=== PATIENT | male | born 1970 | race Caucasian/White ===

== ENCOUNTER 2020-09-10 09:33 | Emergency (ER) | payer MEDICARE, MEDICAID, SELFPAY ==
--- NOTE | 2020-09-10 09:25 | ECG_ITS ---
APPROVED REPORT Exam: Resting ECG HR:79 bpm ECG Measurements Heart Rate 79 AXES AL 130 P 61 QRSd 86 QRS 95 QT 388 T 64 QTc 444 Conclusion Normal sinus rhythm Rightward axis Borderline ECG Electronically signed by : Azeem Hudson, 09/11/2020 07:25:56
[2020-09-10 09:34] VITALS: BP 159/93; PULSE 78; RESP 16; TEMP 36.7; O2SAT 100; BMI 33.0
--- NOTE | 2020-09-10 09:45 | HMH.EDGENADL ---
ED Disposition Clinical Impression: Chest pain Qualifiers: Chest pain type: unspecified Qualified Code(s): R07.9 - Chest pain, unspecified Disposition: Home, Self-Care Condition on Discharge: Good Referrals: Provider,Referral, [Referring] - 3 days Time of Disposition: 11:40 - Critical Care Critical Care Time: No Attestation: On 09/10/20, the high probability of a clinically significant, sudden or life threatening deterioration of the following system(s) required my full and direct attention, intervention and personal management. The time I documented below is in addition to time spent performing reported procedures but includes the following listed in this critical care notation. Medical Decision Making - Medical Records Medical records reviewed: Yes: I reviewed the patient's medical records. - [facility] Inquiry Pt receiving controlled substance: No Vital Signs: 09/10/20 09:34 09/10/20 10:00 09/10/20 10:30 Temperature 98.1 F Temperature Source Oral Pulse Rate 73 74 Pulse Rate [Right Radial] 78 Respiratory Rate 16 18 18 Blood Pressure 151/83 H 165/86 H Blood Pressure [Right Arm] 159/93 H Blood Pressure Mean 105 115 Blood Pressure Mean [Right Arm] 115 02 Sat by Pulse Oximetry 100 09/10/20 11:00 Temperature Temperature Source Pulse Rate 78 Pulse Rate [Right Radial] Respiratory Rate 18 Blood Pressure 167/92 H Blood Pressure [Right Arm] Blood Pressure Mean 119 Blood Pressure Mean [Right Arm] 02 Sat by Pulse Oximetry 100 - Lab Data Lab results reviewed: Yes: I reviewed the patient's lab results. Lab Results 09/10/20 10:40: WBC 9.8, RBC 3.72 L, Hgb 11.9 L, Hct 34.0 L, MCV 91.5, MCH 31.9 H, MCHC 34.9, RDW 13.5, Plt Count 351, MPV 7.2 L, Neut % (Auto) 70.0, Lymph % (Auto) 20.8, Villalba % (Auto) 7.9, Eos % (Auto) 0.5, Baso % (Auto) 0.8, Neut # (Auto) 6.8, Lymph # (Auto) 2.0, Villalba # (Auto) 0.8, Eos # (Auto) 0.1, Baso # (Auto) 0.1 09/10/20 10:40: Troponin I < 0.01 09/10/20 10:40: Sodium 124 L, Potassium 4.5, Chloride 96 L, Carbon Dioxide 25, Anion Gap 7.5, BUN 5 L, Creatinine 1.00, Estimated Creat Clear 132, Estimated GFR 79, Est GFR ( Amer) 96, Glucose 117 H, Calcium 8.7 Result diagrams: 09/10/20 10:40 09/10/20 10:40 Orders (Tests/Meds): ORDERS Category Date Time Status Troponin I Q3H Lab 09/10/20 13:00 Ordered Troponin I Q3H Lab 09/10/20 16:00 Ordered - Radiology Data #1 Image(s): Chest Image Reviewed: Yes I have reviewed radiologist's interpretation Preliminary Findings: Normal/NAD - ECG Data Tracing #1 Normal sinus rhythm, 79 bpm, no ST elevation or depression, normal intervals, no ectopy. ECG initial impression date: 09/10/20 ECG initial impression time: 09:30 Medical Decision Narrative: 49yo M evaluated for chest pain. Patient is in no acute distress on initial evaluation. He is asymptomatic upon arrival. Routine cardiac work-up has been initiated. Patient received aspirin via EMS in route. Laboratory studies are benign. EKG reviewed as above. Patient remains asymptomatic at this time. He is appropriate and stable for discharge home. Encouraged to follow-up with his PCP on Sunday. General Adult HPI - General Stated complaint: chest pain Time Seen by Provider: 09/10/20 09:45 Mode of Arrival: Ambulatory - History of Present Illness HPI narrative: 49yo M with past medical history of psychiatric illness presents the emergency department secondary to chest pain. Patient reports he felt short of breath last night but that quickly resolved. He states he woke up early this morning, as usual, and went outside to smoke. At that time he can only take 2 draws off of his cigarette. He developed left-sided chest pain that did not radiate. He states his symptoms have completely resolved at this time. He denies any shortness of breath. He denies any fever. He denies any recent illness or known sick contact. He denies any cardiac history
--- NOTE | 2020-09-10 09:46 | XR_ITS ---
PROCEDURE: XR CHEST PORTABLE CLINICAL HISTORY: cp COMPARISON: No exams were available for comparison FINDINGS: The cardiomediastinal silhouette and pulmonary vascularity are within normal limits. The lungs are clear without infiltrates, suspicious nodules, or pleural effusions. There monitor lines overlying the chest. No acute bony abnormalities. There is mild degenerate change right shoulder with a somewhat high-riding humeral head. IMPRESSION: No acute findings. Dictated by: Dr. Ajay Montgomery MD 09/10/2020 10:31 Dr. Ajay Montgomery MD in [place] 09/10/2020 10:31
[2020-09-10 10:00] VITALS: BP 151/83; PULSE 73; RESP 18
[2020-09-10 10:30] VITALS: BP 165/86; PULSE 74; RESP 18
[2020-09-10 10:51] LABS: Basophils # 0.1 K/mm3 (0-0.2); Basophils % 0.8 % (0.1-2.0); Eosinophils # 0.1 K/mm3 (0.0-0.4); Eosinophils % 0.5 % (0.1-12.0); Hemoglobin 11.9 g/dL (14.1-18.0); Lymphocytes % 20.8 % (10-50); Mean Corpuscular HGB Conc 34.9 g/dL (31.8-35.4); Mean Corpuscular Hemoglobin 31.9 pg (27.0-31.2); Mean Corpuscular Volume 91.5 fl (80-94); Mean Platelet Volume 7.2 fl (7.4-10.4); Monocytes # 0.8 K/mm3 (0.1-1.0); Monocytes % 7.9 % (1.7-9.3); Neutrophils # 6.8 K/mm3 (1.8-7.8); Platelet Count 351 K/mm3 (142-424); Red Blood Count 3.72 M/mm3 (4.60-6.20); Red Cell Distribution Width 13.5 % (11.5-17.5); White Blood Count 9.8 K/mm3 (4.8-10.8)
[2020-09-10 10:59] LABS: Anion Gap 7.5 mEq/L (5-15); Blood Urea Nitrogen 5 mg/dl (9-20); Calcium 8.7 mg/dl (8.4-10.2); Carbon Dioxide 25 mmol/L (22.0-30.0); Chloride 96 mmol/L (98-107); Creatinine Clearance Estimated 132 mL/min (50-200); Estimated Glomerular Filt Rate 79 ml/min (>60); GFR (African American) 96 ML/MIN (>60); Glucose 117 mg/dl (74-100); Potassium 4.5 mmoL/L (3.5-5.1); Sodium 124 mmol/L (136-145)
[2020-09-10 11:00] VITALS: BP 167/92; PULSE 78; RESP 18; O2SAT 100
[2020-09-10 11:13] LABS: Troponin I < 0.01 ng/ml (0.00-0.034)
--- NOTE | 2020-09-10 11:48 | PC.NURSE ---
[facility] called to let them know patient is ready for pickup.
[2020-09-10 11:53] VITALS: BP 167/92; PULSE 78; RESP 18; TEMP 36.8; O2SAT 100
== END 2020-09-10 12:12 | disposition home or self-care (01) ==
PROVIDERS: Emergency Provider Family Medicine; PCP Emergency Medicine
DX: R07.89 Other chest pain (principal); E11.9 Type 2 diabetes mellitus without complications; E78.5 Hyperlipidemia, unspecified; F17.210 Nicotine dependence, cigarettes, uncomplicated; Z79.899 Other long term (current) drug therapy
CPT/HCPCS: 71045; 80048; 84484; 85025; 93005; 99282

== ENCOUNTER → 2021-08-24 08:31 | Outpatient (CLI) | payer MEDICARE, MEDICAID, SELFPAY ==
--- NOTE | 2021-08-24 08:40 | MR_ITS ---
FINAL REPORT CLINICAL HISTORY: LOW BACK PAIN DOWN RIGHT LEG, NO INJURY FINDINGS: Multiplanar MR imaging of the lumbar spine was performed without contrast. On the sagittal T2-weighted images, disc degeneration is seen at multiple levels. The vertebral alignment is normal. There is no evidence of fracture. No bony mass is identified. The conus has an unremarkable appearance. L1-2: An annular bulge is present. There is no significant canal stenosis or neural foraminal narrowing. L2-3: An annular bulge is present. There is a right posterolateral disc protrusion. There is mild bilateral neural foraminal narrowing. There is mild central canal stenosis with an AP thecal sac diameter of 8 mm. L3-4: An annular bulge is present. There is a small central disc protrusion. There is mild central canal stenosis with an AP thecal sac diameter of 8 mm. L4-5: An annular bulge is present. There is a small left paracentral disc protrusion. There is mild bilateral neural foraminal narrowing. L5-S1: Facet arthropathy is present. There is no significant canal stenosis or neural foraminal narrowing. IMPRESSION: Disc protrusions at L2-L3, L3-L4, and L4-L5 with areas of neural foraminal narrowing and central canal stenosis as described. Reviewed, Interpreted and Dictated by Tenzin Deleon III, MD Transcribed by Deng Cox Authenticated by Tenzin Deleon III, MD on 08/24/2021 10:24:37 AM [facility]
== END ==
PROVIDERS: PCP Emergency Medicine; Visit Provider Emergency Medicine
DX: M54.50 Low back pain, unspecified (principal)
CPT/HCPCS: 72148; 76376

== ENCOUNTER → 2021-09-26 08:42 | Outpatient (POV) | payer MEDICARE, MEDICAID, SELFPAY ==
--- NOTE | 2021-09-26 09:32 | XR_ITS ---
FINAL REPORT CLINICAL HISTORY: TAURUS KNEE PAIN FINDINGS: RIGHT KNEE 4 views were obtained. There is no acute fracture or dislocation. The joint spaces are intact. There is a small joint effusion. IMPRESSION: Small joint effusion with no acute bony abnormality. Reviewed, Interpreted and Dictated by Tenzin Deleon III, MD Transcribed by Sendy Charles Authenticated and [facility]
--- NOTE | 2021-09-26 09:32 | XR_ITS ---
FINAL REPORT CLINICAL HISTORY: TAURUS KNEE PAIN FINDINGS: LEFT KNEE 4 views were obtained. There is no acute fracture or dislocation. The joint spaces are intact. There is no soft tissue abnormality. IMPRESSION: No acute bony abnormality. Reviewed, Interpreted and Dictated by Tenzin Deleon III, MD Transcribed by Sendy Charles Authenticated and [facility]
[2021-09-26 09:46] VITALS: BP 170/88; PULSE 86; RESP 18; TEMP 36.8; O2SAT 98; BMI 34.0
--- NOTE | 2021-09-26 10:20 | HMH.PMCON ---
Assessment and Plan (1) Degenerative disc disease, lumbar Status: Acute Category: Medical Code(s): M51.36 - Other intervertebral disc degeneration, lumbar region (2) Lumbar radiculopathy Status: Acute Category: Medical Code(s): M54.16 - Radiculopathy, lumbar region (3) Sacroiliitis Status: Acute Category: Medical Code(s): M46.1 - Sacroiliitis, not elsewhere classified (4) Greater trochanteric bursitis of right hip Status: Acute Category: Medical Code(s): M70.61 - Trochanteric bursitis, right hip (5) Right knee pain Status: Acute Category: Medical Code(s): M25.561 - Pain in right knee (6) Spinal stenosis, lumbar region with neurogenic claudication Status: Acute Category: Medical Code(s): M48.062 - Spinal stenosis, lumbar region with neurogenic claudication - Assessment and plan all Dx Assessment and Plan for all problems:: Imaging: Ordering Physician: Benny Garrison MD Date of Service: 08/24/21 Procedure(s): MR lumbar spine wo con Accession Number(s): [id number] cc: Benny Garrison MD; Tenzin Deleon MD~ FINAL REPORT CLINICAL HISTORY: LOW BACK PAIN DOWN RIGHT LEG, NO INJURY FINDINGS: Multiplanar MR imaging of the lumbar spine was performed without contrast. On the sagittal T2-weighted images, disc degeneration is seen at multiple levels. The vertebral alignment is normal. There is no evidence of fracture. No bony mass is identified. The conus has an unremarkable appearance. L1-2: An annular bulge is present. There is no significant canal stenosis or neural foraminal narrowing. L2-3: An annular bulge is present. There is a right posterolateral disc protrusion. There is mild bilateral neural foraminal narrowing. There is mild central canal stenosis with an AP thecal sac diameter of 8 mm. L3-4: An annular bulge is present. There is a small central disc protrusion. There is mild central canal stenosis with an AP thecal sac diameter of 8 mm. L4-5: An annular bulge is present. There is a small left paracentral disc protrusion. There is mild bilateral neural foraminal narrowing. L5-S1: Facet arthropathy is present. There is no significant canal stenosis or neural foraminal narrowing. IMPRESSION: Disc protrusions at L2-L3, L3-L4, and L4-L5 with areas of neural foraminal narrowing and central canal stenosis as described. Reviewed, Interpreted and Dictated by Tenzin Deleon III, MD Transcribed by Deng Cox Authenticated by Tenzin Deleon III, MD on 08/24/2021 10:24:37 AM [facility] Plan: Patient presents today with worsening low back pain that radiates to his right lower extremity. He fell about 4 months ago but he did not seek any medical attention. Lumbar MRI is posted above. Upon reviewing the MRI, patient also has some ligamentum flavum hypertrophy in multiple levels. Patient has tried and failed conservative therapies such as oral medication and home exercises for greater than 6 weeks. We will schedule the patient for a lumbar epidural steroid injection at L4-L5. Risks and benefits of the procedure have been explained to the patient. Patient would like to proceed with the procedure. Patient's right knee has also been hurting since his fall about 4 months ago. He states that he has some intermittent swelling on his right knee. We will schedule the patient for a weighted bilateral x-ray of the knees. Follow-up after the injection Patient has been instructed to contact the clinic with any concerns before the next appointment. Dr. Lopez has reviewed this note and agrees with this plan of care. This note was dictated using voice recognition software and make contain errors or omissions. HPI - Data of Consult Patient: new to practice Consult date: 09/26/21 Requesting Physician: NICOLE Vincent - Consult Narrative Reason for consult: LBP History of present illness: Mr. Singh is a 50 year old male who presents today
== END ==
PROVIDERS: Visit Provider Student in an Organized Health Care Education/Training Program
DX: M51.16 Intervertebral disc disorders with radiculopathy, lumbar region (principal); M46.1 Sacroiliitis, not elsewhere classified; M70.61 Trochanteric bursitis, right hip; M48.062 Spinal stenosis, lumbar region with neurogenic claudication; M25.561 Pain in right knee
CPT/HCPCS: 73564; 99202; G0463

== ENCOUNTER → 2021-09-26 09:25 | Outpatient (CLI) | payer MEDICARE, MEDICAID, SELFPAY | PROVIDERS: PCP Emergency Medicine; Visit Provider Student in an Organized Health Care Education/Training Program | DX: M25.562 Pain in left knee (principal); M25.561 Pain in right knee ==

== ENCOUNTER 2021-09-30 08:28 | Day surgery (SDC) | payer MEDICARE, MEDICAID, SELFPAY ==
[2021-09-30 08:34] VITALS: BP 165/94; PULSE 87; RESP 20; TEMP 36.9; O2SAT 96; BMI 34.0
[2021-09-30 08:48] VITALS: BP 185/68; PULSE 86; RESP 20
--- NOTE | 2021-09-30 08:50 | HMH.PMPROC ---
- Procedure Date: 09/30/21 Time: 08:50 Anesthesiologist:: Jacob Proctor CRNA Complications:: None Pre-procedure Diagnosis:: Degenerative disc disease lumbar spine. Lumbar radiculopathy symptoms. Post-procedure Diagnosis:: Same Indications for Procedure:: Very pleasant 50-year-old male who comes our injection clinic today for lumbar epidural steroid injection at the L4-5 level. Patient has low back pain as well as bilateral leg radicular symptoms. He rates his pain 7/10. Patient states lumbar back as well as bilateral leg radicular symptoms increase when walking any distance. Standing for any length of time. Procedure Details:: Procedure: Lumbar epidural steroid injection under fluoroscopy Informed consent was obtained and the risks and benefits of the procedure were explained to the patient. The patient was taken to the procedure room and noninvasive monitors placed, including noninvasive blood pressure cuff and pulse oximeter. The back was viewed using C-arm Fluoroscopy and prepped using Betadine as a cleansing solution and the L4-L5 interspace was palpated. Skin and subcutaneous tissues were anesthetized using lidocaine 1.5% and a 25-gauge needle. After this, an 18-gauge Touhy epidural needle was placed into the L4-L5 interspace and advanced using fluoroscopic guidance and loss of resistance to air until the epidural space was encountered. After confirmation of needle placement in the epidural space, with dye, a solution containing lidocaine 1.5%, 4 mL and Depo-Medrol 80 mg were incrementally injected into the lumbar epidural space. The patient tolerated the procedure well with no complications. The patient was observed in the Pain Clinic and then discharged home neurologically intact. Plan and Disposition:: Patient was discharged without incident.
[2021-09-30 08:57] VITALS: BP 163/98; PULSE 77; RESP 18; O2SAT 97
== END 2021-09-30 08:58 | disposition home or self-care (01) ==
LOC: SC.PAINP 08:29
PROVIDERS: PCP Emergency Medicine; Visit Provider Nurse Anesthetist, Certified Registered
DX: M51.16 Intervertebral disc disorders with radiculopathy, lumbar region (principal); M46.1 Sacroiliitis, not elsewhere classified; M70.61 Trochanteric bursitis, right hip; M48.062 Spinal stenosis, lumbar region with neurogenic claudication; M25.561 Pain in right knee
CPT/HCPCS: 62323; J1040

== ENCOUNTER → 2021-10-13 11:49 | Outpatient (POV) | payer MEDICARE, MEDICAID, SELFPAY ==
--- NOTE | 2021-10-13 13:23 | HMH.PAINSOAP ---
[facility] Pain Management SOAP Note Subjective:: Patient is a pleasant 50-year-old male who presents today for follow-up after a lumbar epidural steroid injection. Patient is currently being treated for degenerative disc disease of lumbar spine with lumbar radiculopathy symptoms, spinal stenosis with neurogenic claudication. After his procedure, patient had significant relief of symptoms of 70 to 80% that lasted for about a week. He was able to increase his activity during that week. Today, patient states that his pain is back to baseline. He has constant low back pain that radiates to bilateral lower extremities, right greater than left. Whenever he walks for longer periods of time, patient does have some right leg heaviness. Rates his pain today as 9 out of 10. For pain, patient is prescribed gabapentin 100 mg twice a day by Dr. Garrison. Patient states that this medication is not helping his pain. [facility] [id number] with an active morphine equivalent of 0. Review of Systems: General: No recent weight changes, no fever, no sleep disturbances Respiratory: No cough, no shortness of air, no recurring pulmonary infections Cardiovascular/peripheral vascular: No chest pain, no palpitations, no edema, no shortness of breath Gastrointestinal: No new onset incontinence, normal bowel movements reported Genitourinary: No new onset incontinence Musculoskeletal: Low back pain Psychiatric: [Normal mood/affect] Neurological: [Denies weakness in extremities], [denies balance issues] Objective:: Physical Exam: General: Alert and oriented x3, no acute distress, pleasant and cooperative Lungs: Respirations even and unlabored, symmetrical chest expansion Eyes: PERRL Musculoskeletal: Flexion and extension of lumbar [spine] somewhat guarded secondary to pain, [antalgic gait noted] Neurological: Speech clear, no gross sensory deficit Assessment:: Degenerative disc disease of lumbar spine with lumbar radiculopathy symptoms, spinal stenosis with neurogenic claudication Plan:: Patient had significant relief of 70 to 80% after a lumbar epidural steroid injection that lasted for about a week. I have discussed with the patient that it would be beneficial to try a repeat lumbar epidural steroid injection. Patient agrees. We will schedule the patient for a lumbar epidural steroid injection at L4-L5 with epidurogram. Risks and benefits of the procedure have been explained to the patient. Patient would like to proceed with the procedure. Patient is not on any blood thinners. Upon reviewing the patient's MRI, patient has some ligamentum flavum hypertrophy and degenerative disc disease on multiple levels. Patient might benefit from a minimally invasive lumbar decompression procedure. I have discussed this procedure in detail with the patient and provided him information in regards to this procedure. We will schedule the patient for lumbar epidural steroid injection with epidurogram to evaluate if the patient is a good candidate for this procedure. Patient has been instructed to contact the clinic with any concerns before the next appointment. Dr. Lopez has reviewed this note and agrees with this plan of care. This note was dictated using voice recognition software and make contain errors or omissions. [facility] History Medical History: Reports:: Cancer, Hyperlipidemia Denies:: Diabetes Mellitus Type 1, Diabetes Mellitus Type 2, MRSA *Have you ever received a pneumonia vaccine?: Yes *Have you received a flu vaccine this season?: Yes Other Medical History: Reports: Arthritis Other Surgeries: Yes: Colonoscopy Amputation: No Fractures: No - *Social History Smoking Status: Current every day smoker Tobacco Type: cigarettes # Packs/Day (cigarettes): 1 Alcohol Intake: never *Occupational Status:: unemployed *Travel in the last 8 weeks: [facility] Family Hx:: No significant family history
[2021-10-13 14:41] VITALS: BP 177/89; PULSE 86; RESP 20; TEMP 36.9; O2SAT 98; BMI 34.0
== END ==
PROVIDERS: Visit Provider Student in an Organized Health Care Education/Training Program
DX: M51.16 Intervertebral disc disorders with radiculopathy, lumbar region (principal); M48.062 Spinal stenosis, lumbar region with neurogenic claudication
CPT/HCPCS: 99212; G0463

== ENCOUNTER 2021-10-25 08:54 | Day surgery (SDC) | payer MEDICARE, MEDICAID, SELFPAY ==
[2021-10-25 09:08] VITALS: BP 157/85; BP 162/89; PULSE 83; PULSE 87; RESP 18; RESP 20; TEMP 37.1; O2SAT 98; O2SAT 99; BMI 32.5
--- NOTE | 2021-10-25 09:25 | HMH.PMPROC ---
- Procedure Date: 10/25/21 Time: 09:26 Anesthesiologist:: Jacob Proctor CRNA Complications:: None Pre-procedure Diagnosis:: Generative disc disease lumbar spine multiple levels. Lumbar radiculopathy. Post-procedure Diagnosis:: Same Indications for Procedure:: This patient is a pleasant 50-year-old who returns our clinic for second lumbar epidural steroid injection at the L4-5 level. Patient had 1 week of significant improvement 70 to 80% in his symptoms after receiving his first injection. However, after that time his symptoms have returned. Procedure Details:: Procedure: Lumbar epidural steroid injection under fluoroscopy Informed consent was obtained and the risks and benefits of the procedure were explained to the patient. The patient was taken to the procedure room and noninvasive monitors placed, including noninvasive blood pressure cuff and pulse oximeter. The back was viewed using C-arm Fluoroscopy and prepped using Betadine as a cleansing solution and the L4-L5 interspace was palpated. Skin and subcutaneous tissues were anesthetized using lidocaine 1.5% and a 25-gauge needle. After this, an 18-gauge Touhy epidural needle was placed into the L4-L5 interspace and advanced using fluoroscopic guidance and loss of resistance to air until the epidural space was encountered. After confirmation of needle placement in the epidural space, with dye, a solution containing lidocaine 1.5%, 4 mL and Depo-Medrol 80 mg were incrementally injected into the lumbar epidural space. The patient tolerated the procedure well with no complications. The patient was observed in the Pain Clinic and then discharged home neurologically intact. Plan and Disposition:: Same
[2021-10-25 09:31] VITALS: BP 160/93; PULSE 76; RESP 18; O2SAT 100
== END 2021-10-25 09:32 | disposition home or self-care (01) ==
LOC: SC.PAINP 08:55
PROVIDERS: PCP Emergency Medicine; Visit Provider Nurse Anesthetist, Certified Registered
DX: M51.16 Intervertebral disc disorders with radiculopathy, lumbar region (principal)
CPT/HCPCS: 62323; J1040; Q9966

== ENCOUNTER → 2021-11-14 09:10 | Outpatient (POV) | payer MEDICARE, MEDICAID, SELFPAY ==
[2021-11-14 09:49] VITALS: BP 155/84; PULSE 82; RESP 20; TEMP 36.4; O2SAT 99; BMI 32.5
--- NOTE | 2021-11-14 10:10 | HMH.PAINSOAP ---
[facility] Pain Management SOAP Note Subjective:: Patient is a 51-year-old male who presents today for follow-up. Patient is current being treated for degenerative disc disease of lumbar spine with lumbar radiculopathy symptoms, spinal stenosis with neurogenic claudication. We have been managing this patient with injective therapy. He has had 2 lumbar epidural steroid injection that provided 70 to 80% of relief that lasted for about 1 to 2 weeks. He describes his pain as originating from the low back and radiating to bilateral lower extremities. He states that he cannot tolerate prolonged activities such as standing and walking. He does have a positive shopping cart syndrome. 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 Rates his pain as 10 out of 10. From his MRI, patient does have ligamentum flavum hypertrophy on multiple levels. I have discussed with him that he could be in candidate for the minimally invasive lumbar decompression procedure. I have explained this procedure with this patient in detail. For pain, he takes gabapentin 100 mg twice a day that is prescribed by Dr. Garrison. This is somewhat helping his pain. [facility] [id number] with an active morphine equivalent of 0. Review of Systems: General: No recent weight changes, no fever, no sleep disturbances Respiratory: No cough, no shortness of air, no recurring pulmonary infections Cardiovascular/peripheral vascular: No chest pain, no palpitations, no edema, no shortness of breath Gastrointestinal: No new onset incontinence, normal bowel movements reported Genitourinary: No new onset incontinence Musculoskeletal: Low back pain Psychiatric: [Normal mood/affect] Neurological: [Denies weakness in extremities], [denies balance issues] Objective:: Physical Exam: General: Alert and oriented x3, no acute distress, pleasant and cooperative Lungs: Respirations even and unlabored, symmetrical chest expansion Eyes: PERRL Musculoskeletal: Flexion and extension of lumbar [spine] somewhat guarded secondary to pain, [antalgic gait noted] Neurological: Speech clear, no gross sensory deficit Assessment:: Degenerative disc disease of the lumbar spine with lumbar radiculopathy symptoms, spinal stenosis with neurogenic claudication Plan:: Patient has had significant relief after lumbar epidural steroid injection of about 70 to 80% that lasted for 1 to 3 weeks. He has tried and failed other conservative therapies such as oral medication, physical therapy, and home exercises for greater than 6 weeks. We will schedule this patient for a lumbar epidural straight injection with epidurogram at L4-L5. Patient is not on any blood thinners. I did discuss with the patient that he can talk to Dr. Garrison to increase his gabapentin. I recommend that he goes up to gabapentin 300 mg twice a day. Patient has been instructed to contact the clinic with any concerns before the next appointment. Dr. Lopez has reviewed this note and agrees with this plan of care. This note was dictated using voice recognition software and make contain errors or omissions. [facility] History Medical History: Reports:: Cancer, Hyperlipidemia Denies:: Diabetes Mellitus Type 1, Diabetes Mellitus Type 2, MRSA *Have you ever received a pneumonia vaccine?: Yes *Have you received a flu vaccine this season?: Yes Other Medical History: Reports: Arthritis Other Surgeries: Yes: Colonoscopy Amputation: No Fractures: No - *Social History Smoking Status: Current every day smoker Tobacco Type: cigarettes # Packs/Day (cigarettes): 1 Alcohol Intake: never *Occupational Status:: other *Travel in the last 8 weeks: None Family Hx:: No significant family history
== END ==
PROVIDERS: PCP Emergency Medicine; Visit Provider Student in an Organized Health Care Education/Training Program
DX: M51.16 Intervertebral disc disorders with radiculopathy, lumbar region (principal); M48.062 Spinal stenosis, lumbar region with neurogenic claudication
CPT/HCPCS: 99212; G0463

== ENCOUNTER 2021-11-18 13:15 | Day surgery (SDC) | payer MEDICARE, MEDICAID, SELFPAY ==
[2021-11-18 13:37] VITALS: BP 168/93; PULSE 79; RESP 18; TEMP 36.4; O2SAT 100; BMI 32.5
[2021-11-18 13:44] VITALS: BP 176/99; PULSE 82; RESP 20
--- NOTE | 2021-11-18 13:59 | P.PCN_ITS ---
- Procedure Date: 11/18/21 Time: 13:59 Anesthesiologist:: Octavio Lopez MD Complications:: None Pre-procedure Diagnosis:: Degenerative disc disease of lumbar spine with lumbar radiculopathy symptoms and lumbar spinal stenosis with neurogenic claudication symptoms Post-procedure Diagnosis:: Same Indications for Procedure:: Patient is a pleasant 51-year-old white male who we have been treating for low back pain with lumbar radiculopathy symptoms. He has increasing pain in his back and legs especially while standing and walking. His legs do feel heavy. On MRI he does have ligamentum flavum hypertrophy. He gets 1 to 2 weeks good relief from the epidural steroid injections. We will do a repeat lumbar epidural steroid injection with epidurogram today to assess levels of stenosis a nd candidacy for minimally invasive lumbar decompression. Procedure Details:: Informed consent was obtained and the risk and benefits of the procedure was explained to the patient. The patient was taken to the procedure room. The patient was placed prone on the procedure table. The patient was prepped and draped in sterile fashion. C-arm fluoroscopy was used to view the lumbar spine. Skin and subcutaneous tissues were anesthetized using lidocaine. I placed an 18-gauge epidural needle and advanced into the L4-L5 interspace using fluoroscopic guidance and [id number] to air. After confirmation of needle placement in the epidural space with dye I injected 2 mL of lidocaine 1.5% with Depo-Medrol 80 mg. Patient tolerated the procedure well with no compl ications. Plan and Disposition:: Based on epidurogram he does have significant stenosis at L3-4 and L4-5. We will seek approval and schedule minimally invasive lumbar decompression bilateral L3-L4 and L4-L5 to decompress his ligamentum flavum to give him relief of his neurogenic claudication symptoms.
[2021-11-18 14:05] VITALS: BP 151/95; PULSE 70; RESP 20; O2SAT 99
== END 2021-11-18 14:05 | disposition home or self-care (01) ==
LOC: SC.PAINP 13:16
PROVIDERS: PCP Emergency Medicine; Visit Provider Anesthesiology
DX: M51.16 Intervertebral disc disorders with radiculopathy, lumbar region (principal); M48.062 Spinal stenosis, lumbar region with neurogenic claudication
CPT/HCPCS: 62323; J1040; Q9966

== ENCOUNTER → 2021-12-01 09:33 | Outpatient (POV) | payer MEDICARE, MEDICAID, SELFPAY ==
[2021-12-01 09:37] VITALS: BP 149/87; PULSE 86; RESP 20; BMI 32.3
--- NOTE | 2021-12-01 09:50 | HMH.PAINSOAP ---
[facility] Pain Management SOAP Note Subjective:: Patient is a pleasant 51 yo male who presents today for follow-up after a lumbar epidural steroid injection with epidurogram on 11/18/2021. Patient is Being treated for degenerative disc disease of the lumbar spine with lumbar radiculopathy symptoms, lumbar spinal stenosis with neurogenic claudication symptoms. After his injection, patient had significant relief of 90%. He has been able to increase his activity since the injections. Patient previously had a LESI that also provided significant relief of about 70-80% but it only lasted for 1-2 weeks. Describes the pain as constant, achy and burning. He has positive shopping cart syndrome. He cannot tolerate any prolonged activity such as standing and walking. 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 MRI shows ligamentum flavum hypertrophy at multiple levels. After his epidurogram, Dr. Lopez recommends the Minimally Invasive Lumbar Decompression (MILD) procedure bilaterally at L3-L4, L4-L5. For his pain, he takes gabapentin 100mg BID that is prescribed by Dr. Garrison. This is helping some of his pain but he would like an increase. [id number], MEQ 0. Review of Systems: General: No recent weight changes, no fever, no sleep disturbances Respiratory: No cough, no shortness of air, no recurring pulmonary infections Cardiovascular/peripheral vascular: No chest pain, no palpitations, no edema, no shortness of breath Gastrointestinal: No new onset incontinence, normal bowel movements reported Genitourinary: No new onset incontinence Musculoskeletal: Low back pain Psychiatric: [Normal mood/affect] Neurological: [Denies weakness in extremities], [denies balance issues] Objective:: Physical Exam: General: Alert and oriented x3, no acute distress, pleasant and cooperative Lungs: Respirations even and unlabored, symmetrical chest expansion Eyes: PERRL Musculoskeletal: Flexion and extension of lumbar [spine] somewhat guarded secondary to pain, [antalgic gait noted]; Neurological: Speech clear, no gross sensory deficit Assessment:: Degenerative disc disease lumbar spine with lumbar radiculopathy symptoms, lumbar spinal stenosis with neurogenic claudication Plan:: Patient continues to have significant relief after his lumbar epidural steroid injection with epidurogram. After his epidurogram, Dr. Lopez is recommending the patient to get a minimally invasive lumbar decompression procedure at bilateral L3-L4 and L4-L5. I have discussed this procedure in detail with the patient. Patient is interested in moving forward with this procedure. We will schedule the patient for a mild procedure at bilateral L3-L4 and L4-L5 to decompress his ligamentum flavum and provide relief of his neurogenic claudication symptoms. Patient has not any blood thinners. I will also adjust the patient's gabapentin. I will increase his gabapentin to gabapentin 300 mg twice a day. Patient has been instructed to contact the clinic with any concerns before the next appointment. Dr. Lopez has reviewed this note and agrees with this plan of care. This note was dictated using voice recognition software and make contain errors or omissions. [facility] History Medical History: Reports:: Cancer, Hyperlipidemia Denies:: Diabetes Mellitus Type 1, Diabetes Mellitus Type 2, MRSA *Have you ever received a pneumonia vaccine?: Yes *Have you received a flu vaccine this season?: Yes Other Medical History: Reports: Arthritis Other Surgeries: Yes: Colonoscopy Amputation: No Fractures: No - *Social History Smoking Status: Current every day smoker Tobacco Type: cigarettes # Packs/Day (cigarettes): 1 Alcohol Intake: never *Occupational Status:: disabled *Travel in the last 8 weeks: None Family Hx:: No significant family history
== END ==
PROVIDERS: PCP Emergency Medicine; Visit Provider Student in an Organized Health Care Education/Training Program
DX: M51.16 Intervertebral disc disorders with radiculopathy, lumbar region (principal); M48.062 Spinal stenosis, lumbar region with neurogenic claudication
CPT/HCPCS: 99212; G0463

== ENCOUNTER 2022-01-21 14:24 | Emergency (ER) | payer MEDICARE, MEDICAID, SELFPAY ==
[2022-01-21 14:23] VITALS: BP 165/96; PULSE 74; RESP 18; TEMP 36.8; O2SAT 99; BMI 34.0
[2022-01-21 15:00] VITALS: BP 175/105; PULSE 68; O2SAT 99
--- NOTE | 2022-01-21 15:53 | PC.NURSE ---
pt in bed sleeping
--- NOTE | 2022-01-21 16:16 | XR_ITS ---
PROCEDURE INFORMATION: Exam: XR Pelvis Exam date and time: 01/21/2022 4:39 PM Age: 51 years old Clinical indication: Pelvic pain; Additional info: Falls, pain TECHNIQUE: Imaging protocol: Radiologic exam of the pelvis. Views: 1 or 2 view. COMPARISON: CT LUMBAR SPINE WO CON 01/21/2022 4:34 PM FINDINGS: Bones/joints: Osteopenia. No fracture. Hip joints are well aligned. Hip joint spaces and articular surfaces are grossly well-maintained. No radiographic evidence to suggest transient osteoporosis or avascular necrosis. No blastic or lytic lesions. The SI joints are unremarkable. The pubic symphysis is unremarkable. Soft tissues: No gross soft tissue abnormalities. Vasculature: Bilateral intrapelvic phleboliths incidentally noted. Other findings: No gross sacrococcygeal abnormalities. IMPRESSION: No acute findings.
--- NOTE | 2022-01-21 16:16 | CT_ITS ---
PROCEDURE INFORMATION: Exam: CT Lumbar Spine Without Contrast Exam date and time: 01/21/2022 4:34 PM Age: 51 years old Clinical indication: Low back pain; Additional info: Falls, back pain TECHNIQUE: Imaging protocol: Computed tomography of the lumbar spine without contrast. Radiation optimization: All CT scans at this facility use at least one of these dose optimization techniques: automated exposure control; mA and/or kV adjustment per patient size (includes targeted exams where dose is matched to clinical indication); or iterative reconstruction. COMPARISON: MR LUMBAR SPINE WO CON 08/24/2021 8:44 AM FINDINGS: Bones/joints: Lumbosacral alignment is normal. No fractures or pars defects. T10-T11 is marginally visualized with chronic Schmorl's node formation but no gross canal or foraminal stenosis. T11-T12: Chronic Schmorl's node formation. Minimal disc bulge. No canal or foraminal stenosis. T12-L1: Slight disc space narrowing. Chronic Schmorl's node formation. Short pedicles. 1 mm disc bulge. Mild canal stenosis. No foraminal stenosis. L1-L2: Mild chronic Schmorl's node formation. Short pedicles. 1.5 mm disc bulge. Moderate canal stenosis. No foraminal stenosis. L2-L3: Mild disc space narrowing. Mild anterior spurring. Mild chronic Schmorl's node formation. Short pedicles. Suspect 2 mm disc bulge. Moderate-severe canal stenosis. Mild-moderate bilateral foraminal stenosis. L3-L4: Mild disc space narrowing. Mild anterior spurring and annular calcification. Chronic Schmorl's node formation. Short pedicles. 2 mm disc bulge. Moderate-severe canal stenosis. Mild-moderate bilateral foraminal stenosis. L4-L5: 2.5 mm disc bulge. Short pedicles. Mild-moderate canal stenosis. Mild bilateral foraminal stenosis. L5-S1: Mild posterior disc space narrowing. 2 mm disc bulge. No canal or foraminal stenosis. Adrenal glands: Right adrenal nodule measures 2 x 1.5 cm and -20 Hounsfield units Hounsfield units average density. Suspected left adrenal nodule measures approximately 17 x 15 mm and approximately 0 Hounsfield units. These are consistent with adrenal adenomas. Kidneys and ureters: Severe left renal cortical scarring and multifocal cortical calcification noted, with compensatory enlargement of the right kidney. Stomach and bowel: The 2 cm aerated posterior fundal gastric diverticulum noted. Vasculature: Moderate calcific atherosclerosis. Soft tissues: Visualized paraspinal soft tissues are normal. IMPRESSION: 1. No evidence of fracture or traumatic subluxation. 2. Osteoarthritic changes is with multilevel mild disc bulging and congenitally short pedicles contributing to multilevel canal stenosis and bilateral foraminal stenoses detailed above. 3. Additional nonemergent findings detailed above.
--- NOTE | 2022-01-21 16:17 | CT_ITS ---
PROCEDURE INFORMATION: Exam: CT Head Without Contrast Exam date and time: 01/21/2022 4:24 PM Age: 51 years old Clinical indication: Pain; Headache; Additional info: Falls TECHNIQUE: Imaging protocol: Computed tomography of the head without contrast. Radiation optimization: All CT scans at this facility use at least one of these dose optimization techniques: automated exposure control; mA and/or kV adjustment per patient size (includes targeted exams where dose is matched to clinical indication); or iterative reconstruction. COMPARISON: No relevant prior studies available. FINDINGS: Brain: No intracranial mass, acute hemorrhage, or acute infarction. Cerebral ventricles: No ventriculomegaly. Paranasal sinuses: Mild ethmoid, left maxillary, and left sphenoid sinus disease. Mastoid air cells: Normal as visualized. Bones/joints: Unremarkable. Soft tissues: Unremarkable. Vasculature: Atherosclerotic vascular disease. IMPRESSION: No acute intracranial abnormality.
--- NOTE | 2022-01-21 16:17 | ECG_ITS ---
APPROVED REPORT Exam: Resting ECG HR:66 bpm ECG Measurements Heart Rate 66 AXES AR 153 P 68 QRSd 97 QRS 98 QT 403 T 71 QTc 417 Conclusion SINUS RHYTHM BORDERLINE RIGHT AXIS DEVIATION [QRS AXIS > 90] BORDERLINE ECG UNCONFIRMED REPORT Electronically signed by : Azeem Hudson MD 01/23/2022 18:02:03
--- NOTE | 2022-01-21 16:17 | CT_ITS ---
PROCEDURE INFORMATION: Exam: CT Cervical Spine Without Contrast Exam date and time: 01/21/2022 4:27 PM Age: 51 years old Clinical indication: Neck pain; Additional info: Falls TECHNIQUE: Imaging protocol: Computed tomography of the cervical spine without contrast. Radiation optimization: All CT scans at this facility use at least one of these dose optimization techniques: automated exposure control; mA and/or kV adjustment per patient size (includes targeted exams where dose is matched to clinical indication); or iterative reconstruction. COMPARISON: CT HEAD/BRAIN WO CON 01/21/2022 4:24 PM FINDINGS: Bones/joints: Degenerative changes of the atlantoaxial articulation. Moderate degenerative disc disease at the C3-C4 through C6-C7 levels, manifest by disc space narrowing, endplate sclerosis, osteophyte formation. Mild multilevel bilateral facet and uncovertebral arthropathy. No acute fracture or malalignment. Paranasal sinuses: Ethmoid, left maxillary, and left sphenoid sinus disease. Lungs: Lung apices are normal. Soft tissues: Normal. IMPRESSION: No acute fracture or malalignment.
--- NOTE | 2022-01-21 16:20 | HMH.EDGENADL ---
Discharge Plan Disposition Patient Disposition: Home, Self-Care Condition: Fair Prescriptions Prescriptions: New amlodipine 5 mg tablet 5 mg PO DAILY Qty: 30 0RF No Action acetaminophen [Tylenol] 325 mg capsule 325 mg PO Q6H PRN (Reason: pain) ibuprofen 600 mg tablet 600 mg PO Q6H loperamide 2 mg capsule 2 mg PO Q3H PRN (Reason: Diarrhea) ondansetron HCl [Zofran] 4 mg tablet 4 mg PO QID PRN (Reason: Nausea) promethazine 25 mg tablet 25 mg PO Q6H PRN (Reason: Nausea) guaifenesin [Robafen] 100 mg/5 mL liquid 200 mg PO Q6H PRN (Reason: Cough) benztropine 2 mg tablet 2 mg PO TID perphenazine 4 mg tablet 4 mg PO TID prazosin 2 mg capsule 4 mg PO QHS quetiapine [Seroquel] 400 mg tablet 400 mg PO BID risperidone 4 mg tablet 4 mg PO BID sertraline 100 mg tablet 200 mg PO DAILY trazodone 150 mg tablet 200 mg PO QHS PRN (Reason: .) gabapentin 300 mg capsule 300 mg PO BID Qty: 60 5RF tamsulosin 0.4 MG capsule 0.4 mg PO DAILY topiramate 25 MG tablet 25 mg PO BID oxcarbazepine 600 MG tablet 600 mg PO TID Rx Instructions: with meals clonazepam 0.5 MG tablet 0.5 mg PO BID gabapentin 100 MG capsule 100 mg PO BID Referrals Follow up/Referrals: Benny Garrison MD [Primary Care Provider] - See instructions Activity Restrictions/Add. Instructions Additional Instructions/Restrictions: Rise slowly when you stand, hold onto blanton or objects to help you walk until walker is obtained. Amlodipine for blood pressure. Follow-up with primary care provider and with Dr. Lopez. Clinical Impressions Clinical Impression: Multiple falls, DDD (degenerative disc disease), lumbar, Spinal stenosis, Chronic lumbar radiculopathy, Hypertension Instructions Patient Instructions: DI for Low Back Pain, DI for High Blood Pressure, How to Prevent Falls, DI for Lumbar Radiculopathy, DI for Spinal Stenosis Discharge ED Provider: Torin Villaseñor Adult HPI General Chief complaint: Back Pain/Injury Stated complaint: Back pain/ Leg weakness Time Seen by Provider: 01/21/22 15:43 Mode of Arrival: EMS Limitations: No Limitations Description of Symptoms (Recalled from ER Triage Doc. by RN): Pt c/o worsening chronic back pain and leg weakness that is causing him to fall. Pt advises that he is seen in pain management for this condition and is scheduled for a procedure within the next month History of Present Illness HPI narrative: Patient is brought in by ambulance from [facility]. He is a very difficult and poor historian. Reportedly personnel at that facility thought that he might be having a stroke. Exact details of why they felt he was having a stroke is unknown, but EMS reports that upon their arrival the patient was complaining of back pain and leg problems and they did not feel any of his symptoms suggestive of stroke. The patient tells me that he has been falling for 3 weeks. Says that he can no longer stand and walk because he will fall. He is not certain why he falls. At different times he endorses dizziness, syncope, bilateral leg weakness, low back pain as causes for his falls. He also tells me that something gets me in his head and neck, he is not sure what it is. He says he was able to get up and walk today, but whenever he did so he would fall. He has a history of lumbar disc disease and spinal stenosis. He has been seeing Dr. Lopez. He has received epidural injections and is scheduled for surgery, minimally invasive lumbar decompression per Dr. Lopez's most recent note. He denies any bowel or bladder dysfunction. Related Data Home Medications Medication Instructions Recorded Confirmed acetaminophen 325 mg capsule 325 mg PO Q6H PRN pain 09/13/18 12/01/21 (Tylenol) benztropine 2 mg tablet 2 mg PO TID . 09/13/18 12/01/21 guaifenesin 100 mg/5 mL oral 200 mg PO Q6H PRN Cough 05
--- NOTE | 2022-01-21 16:26 | PC.NURSE ---
Pt gone to RAD for CT and Xray
[2022-01-21 17:01] VITALS: BP 207/113; PULSE 69; O2SAT 100
[2022-01-21 17:43] LABS: Creatine Kinase 375 U/L (55-170)
[2022-01-21 17:47] LABS: Basophils # 0.1 K/mm3 (0-0.2); Basophils % 0.7 % (0.1-2.0); Eosinophils # 0.3 K/mm3 (0.0-0.4); Eosinophils % 2.7 % (0.1-12.0); Hematocrit 37.5 % (42.0-52.0); Hemoglobin 12.2 g/dL (14.1-18.0); Lymphocytes # 2.5 K/mm3 (0.7-4.5); Lymphocytes % 22.5 % (10-50); Mean Corpuscular HGB Conc 32.5 g/dL (31.8-35.4); Mean Corpuscular Hemoglobin 30.3 pg (27.0-31.2); Mean Corpuscular Volume 93.4 fl (80-94); Mean Platelet Volume 7.3 fl (7.4-10.4); Monocytes # 0.8 K/mm3 (0.1-1.0); Monocytes % 7.5 % (1.7-9.3); Neutrophils # 7.3 K/mm3 (1.8-7.8); Neutrophils % 66.5 % (37.0-80.0); Platelet Count 336 K/mm3 (142-424); Red Blood Count 4.02 M/mm3 (4.60-6.20)
--- NOTE | 2022-01-21 17:51 | PC.NURSE ---
pt in bed sleeping,
[2022-01-21 17:53] LABS: CKMB Relative Index 0.8 U/L (0-4.0); Creatine Kinase MB 3.1 ng/ml (0.0-2.03)
[2022-01-21 17:59] LABS: Troponin I < 0.01 ng/ml (0.00-0.034)
[2022-01-21 18:00] LABS: Chloride 95 mmol/L (98-107)
[2022-01-21 18:01] LABS: Potassium 3.7 mmoL/L (3.5-5.1); Sodium 136 mmol/L (136-145)
[2022-01-21 18:04] LABS: Anion Gap 16.7 mEq/L (5-15); Blood Urea Nitrogen 9 mg/dl (9-20); Calcium 8.8 mg/dl (8.4-10.2); Carbon Dioxide 28 mmol/L (22.0-30.0); Creatinine Clearance Estimated 121 mL/min (50-200); Estimated Glomerular Filt Rate 71 ml/min (>60); GFR (African American) 85 ML/MIN (>60); Glucose 100 mg/dl (74-100)
[2022-01-21 18:29] LABS: Microscopic, Urine URINE MICROSCOPIC (MICROSCOPIC)
--- NOTE | 2022-01-21 18:31 | PC.NURSE ---
Called [facility] and notified them that pt is ready for discharge. They advised they will send someone to pick pulling machine tender pt.
[2022-01-21 18:37] LABS: Appearance,Urine CLEAR (Clear); Bilirubin,Urine Negative (Negative); Blood, Urine Negative (Negative); Color,Urine YELLOW (Yellow); Glucose,Urine (UA) Negative (Negative); Ketones,Urine Negative (Negative); Leukocyte Esterase,Urine Negative (Negative); Nitrate,Urine Negative (Negative); PH,Urine 6.5 (5.0-8.5); Protein,Urine Negative (Negative); Specific Gravity, Urine 1.015 (1.005-1.030); Urobilinogen,Urine 0.2 EU/dl (0.2)
--- NOTE | 2022-01-21 18:46 | PC.NURSE ---
personal snf here to get pt
[2022-01-21 18:55] LABS: Amorphous Sediment,Urine Trace /lpf
[2022-01-21 18:59] VITALS: BP 169/104; PULSE 71; RESP 16; TEMP 36.8; O2SAT 98
== END 2022-01-21 19:00 | disposition home or self-care (01) ==
PROVIDERS: Emergency Provider Emergency Medicine; PCP Emergency Medicine
DX: M51.16 Intervertebral disc disorders with radiculopathy, lumbar region (principal); I10 Essential (primary) hypertension; Z79.899 Other long term (current) drug therapy; Z88.8 Allergy status to other drugs, medicaments and biological substances; Z72.0 Tobacco use; F32.A Depression, unspecified; R29.6 Repeated falls
CPT/HCPCS: 70450; 72125; 72131; 72170; 80048; 81001; 82550; 82553; 84484; 85025; 93005; 99285

== ENCOUNTER 2022-01-22 14:11 | Emergency (ER) | payer MEDICARE, MEDICAID, SELFPAY ==
[2022-01-22 14:11] VITALS: BP 144/89; PULSE 79; RESP 20; TEMP 36.8; O2SAT 100; BMI 29.7
--- NOTE | 2022-01-22 14:12 | PC.NURSE ---
ED MD AT BEDSIDE FOR EVALUATION
[2022-01-22 14:58] LABS: Basophils # 0.1 K/mm3 (0-0.2); Basophils % 0.4 % (0.1-2.0); Eosinophils # 0.1 K/mm3 (0.0-0.4); Eosinophils % 1.2 % (0.1-12.0); Hematocrit 35.6 % (42.0-52.0); Hemoglobin 11.5 g/dL (14.1-18.0); Lymphocytes # 2.7 K/mm3 (0.7-4.5); Lymphocytes % 22.7 % (10-50); Mean Corpuscular HGB Conc 32.2 g/dL (31.8-35.4); Mean Corpuscular Hemoglobin 30.3 pg (27.0-31.2); Mean Corpuscular Volume 94.2 fl (80-94); Mean Platelet Volume 7.6 fl (7.4-10.4); Monocytes % 8.2 % (1.7-9.3); Neutrophils % 67.4 % (37.0-80.0); Platelet Count 376 K/mm3 (142-424); Red Blood Count 3.78 M/mm3 (4.60-6.20); Red Cell Distribution Width 14.2 % (11.5-17.5); White Blood Count 11.8 K/mm3 (4.8-10.8)
[2022-01-22 15:05] LABS: Chloride 100 mmol/L (98-107); Potassium 3.6 mmoL/L (3.5-5.1); Sodium 140 mmol/L (136-145)
--- NOTE | 2022-01-22 15:05 | PC.NURSE ---
PT AMBULATED TO BR WITH STAND BY ASSISTANCE. NO WEAKNESS NOTED
[2022-01-22 15:07] LABS: Alanine Aminotransferase 18 U/L (12-78); Blood Urea Nitrogen 8 mg/dl (9-20); Creatinine Clearance Estimated 106 mL/min (50-200); Estimated Glomerular Filt Rate 71 ml/min (>60); GFR (African American) 85 ML/MIN (>60)
[2022-01-22 15:08] LABS: Albumin Level 4.4 g/dl (3.5-5.0); Albumin/Globulin Ratio 1.6 (1.1-1.8); Alkaline Phosphatase 138 U/L (38-126); Anion Gap 16.6 mEq/L (5-15); Aspartate Amino Transferase 35 U/L (17-59); Carbon Dioxide 27 mmol/L (22.0-30.0); Globulin 2.8 g/dL (1.3-3.2); Glucose 111 mg/dl (74-100); Magnesium 1.9 mg/dl (1.6-2.3); Total Protein,Serum 7.2 g/dl (6.3-8.2)
[2022-01-22 15:18] LABS: Bilirubin,Total 0.1 mg/dl (0.2-1.3)
--- NOTE | 2022-01-22 15:19 | HMH.EDWEAK ---
Discharge Plan Disposition Patient Disposition: Home, Self-Care Condition: Good Prescriptions Prescriptions: No Action acetaminophen [Tylenol] 325 mg capsule 325 mg PO Q6H PRN (Reason: pain) ibuprofen 600 mg tablet 600 mg PO Q6H loperamide 2 mg capsule 2 mg PO Q3H PRN (Reason: Diarrhea) ondansetron HCl [Zofran] 4 mg tablet 4 mg PO QID PRN (Reason: Nausea) promethazine 25 mg tablet 25 mg PO Q6H PRN (Reason: Nausea) guaifenesin [Robafen] 100 mg/5 mL liquid 200 mg PO Q6H PRN (Reason: Cough) benztropine 2 mg tablet 2 mg PO TID perphenazine 4 mg tablet 4 mg PO TID prazosin 2 mg capsule 4 mg PO QHS quetiapine [Seroquel] 400 mg tablet 400 mg PO BID risperidone 4 mg tablet 4 mg PO BID sertraline 100 mg tablet 200 mg PO DAILY trazodone 150 mg tablet 200 mg PO QHS PRN (Reason: .) clonazepam 0.5 mg tablet 0.25 mg PO BID 30 Days Qty: 30 2RF gabapentin 300 mg capsule 300 mg PO BID topiramate 25 MG tablet 25 mg PO BID oxcarbazepine 600 MG tablet 600 mg PO TID Rx Instructions: with meals tamsulosin 0.4 mg Capsule 0.4 mg PO DAILY Multi Vitamin 9 mg iron/15 mL Liquid 1 ml PO DAILY Referrals Follow up/Referrals: Benny Garrison MD [Primary Care Provider] - See instructions Activity Restrictions/Add. Instructions Additional Instructions/Restrictions: Please follow-up with your primary care physician in the next 2 to 3 days for further management. Please also keep your appointment with the pain doctor and spine doctor given your ongoing back pain. Please keep your scheduled appointment. Please continue to take Tylenol and ibuprofen for pain control. Also utilize your pain meds provided to you during your prior visit. Please continue to drink plenty of water and eat 3 balanced meals. Please return to the emergency department for any worsening symptoms. Clinical Impressions Clinical Impression: Chronic lumbar radiculopathy, Bilateral leg weakness Instructions Patient Instructions: DI for Lumbar Radiculopathy Print Language Print Language: Ivorian Discharge ED Provider: Nelda Fried [facility] General Chief complaint: Weakness Stated complaint: weakness Time Seen by Provider: 10/09/22 14:45 Mode of Arrival: EMS Source of Information: Patient Limitations: No Limitations Description of Symptoms (Recalled from ER Triage Doc. by RN): PT SENT FROM [facility]. STATES HE GOT UP TO GET PIZZA AND FELL, MY LEG JUST DOESNT WORK SOMETIMES, THEY MADE ME COME. PT REPORTS CHRONIC LOW BACK PAIN. SEES PAIN MANAGEMENT. History of Present Illness HPI Narrative: Mr. Singh is a 51-year-old male past medical history for degenerative disc disease, lumbar radiculopathy and lower extremity weakness presenting to the emergency department for bilateral lower extremity weakness. Patient reports he got up to get pizza and felt that his legs were weak bilaterally. Patient reports chronic lower back pain and similar symptoms prior. Patient reports lower back pain at this time. Patient describes shooting sensation down both legs. Patient ambulatory prior to arrival. Denies any urinary retention or fecal incontinence. Denies any history of IV drug use. MD Complaint: generalized weakness Related Data Home Medications Medication Instructions Recorded Confirmed acetaminophen 325 mg capsule 325 mg PO Q6H PRN pain 09/13/18 01/27/22 (Tylenol) benztropine 2 mg tablet 2 mg PO TID . 09/13/18 01/27/22 guaifenesin 100 mg/5 mL oral 200 mg PO Q6H PRN Cough 09/13/18 01/27/22 liquid (Robafen) ibuprofen 600 mg tablet 600 mg PO Q6H Pain 09/13/18 01/27/22 loperamide 2 mg capsule 2 mg PO Q3H PRN Diarrhea 09/13/18 01/27/22 ondansetron HCl 4 mg tablet 4 mg PO QID PRN Nausea 09/13/18 01/27/22 (Zofran) perphenazine 4 mg tablet 4 mg PO TID . 09/13/18 01/27/22 prazosin 2 mg capsule 4 mg PO QHS . 09/13/18 01/27/22 pro
--- NOTE | 2022-01-22 15:44 | PC.NURSE ---
PT AMBULATING INDEPENDENTLY IN ROOM AND TO NURSES STATION WITHOUT DIFFICULTY
[2022-01-22 16:00] VITALS: BP 138/76; PULSE 75; RESP 18; TEMP 36.8; O2SAT 97
== END 2022-01-22 16:00 | disposition home or self-care (01) ==
PROVIDERS: Emergency Provider Student in an Organized Health Care Education/Training Program; PCP Emergency Medicine
DX: R53.1 Weakness (principal); M54.16 Radiculopathy, lumbar region; Z79.899 Other long term (current) drug therapy; Z88.8 Allergy status to other drugs, medicaments and biological substances
CPT/HCPCS: 80053; 83735; 85025; 99282

== ENCOUNTER 2022-01-23 21:53 | Emergency (ER) | payer MEDICARE, MEDICAID, SELFPAY ==
[2022-01-23 21:54] VITALS: BP 147/83; PULSE 87; RESP 20; TEMP 36.6; O2SAT 98; BMI 30.1
[2022-01-23 22:00] VITALS: BP 130/76; PULSE 74; TEMP 36.6; O2SAT 99
--- NOTE | 2022-01-23 22:08 | XR_ITS ---
PROCEDURE INFORMATION: Exam: XR Chest Exam date and time: 01/23/2022 10:32 PM Age: 51 years old Clinical indication: Sternal or substernal pain; Additional info: Chest pain TECHNIQUE: Imaging protocol: Radiologic exam of the chest. Views: 2 views. COMPARISON: CR XR CHEST PORTABLE 09/10/2020 10:20 AM FINDINGS: Lungs: No consolidation. Pleural spaces: No pneumothorax. Heart/Mediastinum: No cardiomegaly. Bones/joints: No acute fracture. IMPRESSION: No acute findings.
[2022-01-23 22:13] LABS: Coronavirus 19, PCR Not Detected (NotDetected); Influenza A, PCR Not Detected (NotDetected); Influenza B, PCR Not Detected (NotDetected)
--- NOTE | 2022-01-23 22:15 | ECG_ITS ---
APPROVED REPORT Exam: Resting ECG HR:70 bpm ECG Measurements Heart Rate 70 AXES HI 134 P 62 QRSd 94 QRS 110 QT 314 T 50 QTc 335 Conclusion SINUS RHYTHM POSSIBLE RIGHT VENTRICULAR HYPERTROPHY [SOME/ALL OF: PROMINENT R IN V1, LATE TRANSITION, RAD, SEDRICK, SSS] NONSPECIFIC T-WAVE ABNORMALITY ABNORMAL ECG UNCONFIRMED REPORT Electronically signed by : Azeem Hudson MD 01/24/2022 20:12:58
--- NOTE | 2022-01-23 22:19 | PC.NURSE ---
PT AWARE OF NEED FOR URINE SAMPLE. PT STATES HE IS UNABLE TO GIVE URINE SAMPLE AT THIS TIME.
--- NOTE | 2022-01-23 22:20 | PC.NURSE ---
Patient with radiology at this time, to CT
--- NOTE | 2022-01-23 22:26 | PC.NURSE ---
Patient returns from CT scan at this time.
[2022-01-23 22:28] LABS: Chloride 102 mmol/L (98-107); Sodium 139 mmol/L (136-145)
[2022-01-23 22:29] LABS: Basophils # 0.1 K/mm3 (0-0.2); Basophils % 0.8 % (0.1-2.0); Eosinophils # 0.3 K/mm3 (0.0-0.4); Hematocrit 36.3 % (42.0-52.0); Lymphocytes # 3.1 K/mm3 (0.7-4.5); Mean Corpuscular HGB Conc 32.9 g/dL (31.8-35.4); Mean Corpuscular Hemoglobin 31.1 pg (27.0-31.2); Mean Corpuscular Volume 94.4 fl (80-94); Mean Platelet Volume 7.5 fl (7.4-10.4); Monocytes # 0.8 K/mm3 (0.1-1.0); Monocytes % 7.3 % (1.7-9.3); Neutrophils # 6.4 K/mm3 (1.8-7.8); Neutrophils % 59.9 % (37.0-80.0); Platelet Count 369 K/mm3 (142-424); Potassium 3.5 mmoL/L (3.5-5.1); Red Blood Count 3.85 M/mm3 (4.60-6.20); Red Cell Distribution Width 14.3 % (11.5-17.5); White Blood Count 10.6 K/mm3 (4.8-10.8)
[2022-01-23 22:31] LABS: Alanine Aminotransferase 16 U/L (12-78); Albumin Level 4.2 g/dl (3.5-5.0); Albumin/Globulin Ratio 1.4 (1.1-1.8); Alkaline Phosphatase 138 U/L (38-126); Anion Gap 14.5 mEq/L (5-15); Aspartate Amino Transferase 40 U/L (17-59); Bilirubin,Total 0.2 mg/dl (0.2-1.3); Blood Urea Nitrogen 10 mg/dl (9-20); Calcium 8.9 mg/dl (8.4-10.2); Carbon Dioxide 26 mmol/L (22.0-30.0); Creatinine Clearance Estimated 98 mL/min (50-200); Estimated Glomerular Filt Rate 64 ml/min (>60); GFR (African American) 77 ML/MIN (>60); Globulin 2.9 g/dL (1.3-3.2); Glucose 109 mg/dl (74-100); Total Protein,Serum 7.1 g/dl (6.3-8.2)
[2022-01-23 22:32] LABS: NT Pro Brain Natriuretic Pep. 72.6 pg/mL (0-125)
--- NOTE | 2022-01-23 22:33 | PC.NURSE ---
PT GIVEN URINAL AND STATES HE IS ATTEMPTING TO URINATE.
[2022-01-23 22:39] LABS: T4 (Thyroxine) 3.4 ug/dl (5.53-11.0)
[2022-01-23 22:40] LABS: Troponin I < 0.01 ng/ml (0.00-0.034)
[2022-01-23 22:42] VITALS: BP 128/70; PULSE 81; RESP 17; O2SAT 99
--- NOTE | 2022-01-23 22:43 | PC.NURSE ---
URINE COLLECTED AND SENT TO LAB.
[2022-01-23 22:47] LABS: Microscopic, Urine URINE MICROSCOPIC (MICROSCOPIC)
[2022-01-23 22:48] LABS: Appearance,Urine CLEAR (Clear); Bilirubin,Urine Negative (Negative); Blood, Urine Negative (Negative); Color,Urine YELLOW (Yellow); Glucose,Urine (UA) Negative (Negative); Ketones,Urine Negative (Negative); Leukocyte Esterase,Urine Negative (Negative); Nitrate,Urine Negative (Negative); Protein,Urine Negative (Negative); Urobilinogen,Urine 0.2 EU/dl (0.2)
[2022-01-23 22:53] LABS: Thyroid Stimulating Hormone 1.84 uIU/mL (0.465-4.68)
[2022-01-23 22:55] LABS: Bacteria,Urine Trace /lpf
[2022-01-23 23:00] VITALS: BP 137/88; PULSE 72; RESP 16; O2SAT 98
--- NOTE | 2022-01-23 23:14 | HMH.EDURI ---
Discharge Plan Disposition Patient Disposition: Home, Self-Care Chief Complaint: Upper Respiratory Infection Prescriptions Prescriptions: No Action acetaminophen [Tylenol] 325 mg capsule 325 mg PO Q6H PRN (Reason: pain) ibuprofen 600 mg tablet 600 mg PO Q6H loperamide 2 mg capsule 2 mg PO Q3H PRN (Reason: Diarrhea) ondansetron HCl [Zofran] 4 mg tablet 4 mg PO QID PRN (Reason: Nausea) promethazine 25 mg tablet 25 mg PO Q6H PRN (Reason: Nausea) guaifenesin [Robafen] 100 mg/5 mL liquid 200 mg PO Q6H PRN (Reason: Cough) benztropine 2 mg tablet 2 mg PO TID perphenazine 4 mg tablet 4 mg PO TID prazosin 2 mg capsule 4 mg PO QHS quetiapine [Seroquel] 400 mg tablet 400 mg PO BID risperidone 4 mg tablet 4 mg PO BID sertraline 100 mg tablet 200 mg PO DAILY trazodone 150 mg tablet 200 mg PO QHS PRN (Reason: .) amlodipine 5 mg tablet 5 mg PO DAILY gabapentin 300 mg capsule 300 mg PO BID tamsulosin 0.4 MG capsule 0.4 mg PO DAILY topiramate 25 MG tablet 25 mg PO BID oxcarbazepine 600 MG tablet 600 mg PO TID Rx Instructions: with meals clonazepam 0.5 MG tablet 0.5 mg PO BID gabapentin 100 MG capsule 100 mg PO BID Referrals Follow up/Referrals: Benny Garrison MD [Primary Care Provider] - See instructions Clinical Impressions Clinical Impression: Chronic lumbar radiculopathy, Medication adverse effect Instructions Patient Instructions: DI for Low Back Pain Discharge ED Provider: Benny Garrison URI/Sore Throat HPI General Chief Complaint: Upper Respiratory Infection Stated Complaint: Cough, Congestion Time Seen by Provider: 01/23/22 23:14 Mode of Arrival: EMS Source of Information: Patient, EMS and Medical Record Limitations: DEPRESSIVE DISORDER/SCHIZO AFFECTIVE DISORDER Description of Symptoms (Recalled from ER Triage Doc. by RN): PER [facility] REPORT; PT WAS SENT TO ER FOR SLURRED SPEECH, LOWER EXTREMITIY SWELLING AND ALTERED MENTAL STATUS. WHEN [facility] ARRIVED. PT ALERT AND REPORTS THAT HE WAS JUST WOKE UP AND HE IS FINE. SPEECH WNL. GCS 15. PT REPORTS THAT HE HAS BEEN TO THE ER SEVERAL TIMES LATELY AND HE FEELS MORE TIRED THAN NORMAL AND HAS A COUGH. DUONEB GIVEN PER EMS PRIOR TO ARRIVAL. History of Present Illness HPI Narrative: pt with dec walking and has dec ambulation - has seen pain center MD Complaint: cough Onset (ago): hour(s) Severity: moderate Related Data Home Medications Medication Instructions Recorded Confirmed acetaminophen 325 mg capsule 325 mg PO Q6H PRN pain 09/13/18 01/23/22 (Tylenol) benztropine 2 mg tablet 2 mg PO TID . 09/13/18 01/23/22 guaifenesin 100 mg/5 mL oral 200 mg PO Q6H PRN Cough 09/13/18 01/23/22 liquid (Robafen) ibuprofen 600 mg tablet 600 mg PO Q6H Pain 09/13/18 01/23/22 loperamide 2 mg capsule 2 mg PO Q3H PRN Diarrhea 09/13/18 01/23/22 ondansetron HCl 4 mg tablet 4 mg PO QID PRN Nausea 09/13/18 01/23/22 (Zofran) perphenazine 4 mg tablet 4 mg PO TID . 09/13/18 01/23/22 prazosin 2 mg capsule 4 mg PO QHS . 09/13/18 01/23/22 promethazine 25 mg tablet 25 mg PO Q6H PRN Nausea 09/13/18 01/23/22 quetiapine 400 mg tablet (Seroquel) 400 mg PO BID . 09/13/18 01/23/22 risperidone 4 mg tablet 4 mg PO BID . 09/13/18 01/23/22 sertraline 100 mg tablet 200 mg PO DAILY Depression 09/13/18 01/23/22 trazodone 150 mg tablet 200 mg PO QHS PRN . 09/13/18 01/23/22 clonazepam 0.5 mg tablet 0.5 mg PO BID . 09/26/21 01/23/22 gabapentin 100 mg capsule 100 mg PO BID . 09/26/21 01/23/22 oxcarbazepine 600 mg tablet 600 mg PO TID . 09/26/21 01/23/22 tamsulosin 0.4 mg capsule 0.4 mg PO DAILY . 09/26/21 01/23/22 topiramate 25 mg tablet 25 mg PO BID . 09/26/21 01/23/22 amlodipine 5 mg tablet 5 mg PO DAILY BLOOD PRESSURE 01/23/22 01/23/22 gabapentin 300 mg capsule 300 mg PO BID NEUROPATHY 01/23/22 01/23/22 Allergies Allergy/AdvReac Type Severity
--- NOTE | 2022-01-23 23:16 | CT_ITS ---
PROCEDURE INFORMATION: Exam: CT Head Without Contrast Exam date and time: 01/23/2022 11:24 PM Age: 51 years old Clinical indication: Injury or trauma; Fall; Additional info: Generalized weakness; Fall at alf. TECHNIQUE: Imaging protocol: Computed tomography of the head without contrast. Radiation optimization: All CT scans at this facility use at least one of these dose optimization techniques: automated exposure control; mA and/or kV adjustment per patient size (includes targeted exams where dose is matched to clinical indication); or iterative reconstruction. COMPARISON: CT HEAD/BRAIN WO CON 01/21/2022 4:24 PM FINDINGS: Brain: Normal. No hemorrhage. Unremarkable white matter. No mass effect. Cerebral ventricles: No ventriculomegaly. Paranasal sinuses: Visualized sinuses are unremarkable. No fluid levels. Mastoid air cells: Visualized mastoid air cells are well aerated. Bones/joints: Unremarkable. No acute fracture. Soft tissues: Unremarkable. IMPRESSION: No evidence of acute intracranial hemorrhage, mass effect, or edema.
[2022-01-24] VITALS: BP 146/100; PULSE 71; RESP 18; O2SAT 97
--- NOTE | 2022-01-24 00:24 | PC.NURSE ---
WAI AT [facility] UPDATED. PT UPDATED. PT AWARE OF WAITING ON RESULTS OF HEAD CT.
--- NOTE | 2022-01-24 00:50 | PC.NURSE ---
REPORT TO KATIE AT [facility]. KATIE STATES HE WILL BE HERE TO GET HIM SHORTLY.
--- NOTE | 2022-01-24 00:56 | PC.NURSE ---
REPORT TO NELSY RN- PT AWARE OF PLAN TO DISCHARGE.
[2022-01-24 00:58] VITALS: BP 131/79; PULSE 68; RESP 18; O2SAT 96
[2022-01-24 01:06] VITALS: BP 136/82; PULSE 70; RESP 18; TEMP 36.6; O2SAT 96
[2022-01-24 01:38] VITALS: BP 123/74; PULSE 82; RESP 19; TEMP 36.8; O2SAT 97
== END 2022-01-24 01:55 | disposition home or self-care (01) ==
PROVIDERS: Emergency Provider Emergency Medicine; PCP Emergency Medicine
DX: J06.9 Acute upper respiratory infection, unspecified (principal); R41.82 Altered mental status, unspecified; R55 Syncope and collapse; R47.81 Slurred speech; M54.16 Radiculopathy, lumbar region; R11.0 Nausea; Z20.822 Contact with and (suspected) exposure to COVID-19; R05.9 Cough, unspecified; M79.89 Other specified soft tissue disorders; Z79.1 Long term (current) use of non-steroidal anti-inflammatories (NSAID); Z79.899 Other long term (current) drug therapy; Z87.891 Personal history of nicotine dependence
CPT/HCPCS: 70450; 71046; 80053; 81001; 83880; 84436; 84443; 84484; 85025; 93005; 99285; C9803; U0003; U0005

== ENCOUNTER 2022-01-27 07:21 | Day surgery (SDC) | payer MEDICARE, MEDICAID, SELFPAY ==
[2022-01-27 08:14] VITALS: BP 156/88; PULSE 84; RESP 18; TEMP 36.6; O2SAT 96; BMI 34.0
--- NOTE | 2022-01-27 08:37 | P.PN_ITS ---
PFSH PFS Medical History (Updated 01/27/22 @ 07:49 by Ramona Montoya RN) History of back pain History of syncope Surgical History (Updated 01/27/22 @ 08:01 by Ramona Montoya RN) History of throat surgery Family History (Updated 01/27/22 @ 08:02 by Ramona Montoya RN) Other FHx: mental illness Family history of cancer Family history of hyperlipidemia Family history of hypertension Family history of myocardial infarction Social History (Updated 01/27/22 @ 08:14 by Ramona Montoya RN) Smoking Status: Current every day smoker tobacco type: cigarettes packs per day: 1 pack-years: 20 alcohol intake: former substance use type: former substance user and marijuana current occupational status: disabled Travel in the last 8 weeks: None household members: other housing: assisted living facility marital status: single service: No senior care: No special guerda needs: No agree to transfusion: No do you feel safe at home: Yes victim of physical abuse: No victim of emotional abuse: No victim of sexual abuse: No would you like helpful sources: No [facility] Anesthesia Checklist Patient Identification Patient Identification: Arm Band Structural Data Admitted From: Long-term Nursing Facility Planned Operative Procedure/s: MILD Procedure at L3/4, L4/5 Bilaterally Consent for Planned Operative Procedure(s) Verified: Yes Verified Documents: Surgical Consent and History and Physical NPO Status Verified Time NPO: 00:00 Additional verifications Anesthesia Reactions: No Hx Blood Transfusions: No Blood Transfusion Reaction: No Airway Assessment C-Spine Mobility Assessed: Yes TMJ Mobility Assessed: Yes Dentition: Poor Dentition Neurological Assessment Level of Consciousness: Awake and Alert Anesthesia Plan Anesthesia Risk discussed: Yes Anesthesia Plan: Verified ASA Class: II Anesthesia Type: MAC
--- NOTE | 2022-01-27 09:37 | SUR.OPER ---
0930 80mg depomedrol used for lumbar decompression by Dr. Lopez
[2022-01-27 09:59] VITALS: BP 155/99; PULSE 99; RESP 18; TEMP 36.3; O2SAT 99
[2022-01-27 10:14] VITALS: BP 155/94; PULSE 94; RESP 16; O2SAT 100
--- NOTE | 2022-01-27 10:19 | P.OP_ITS ---
Date of procedure: 01/27/22 Pre-op Diagnosis:: Degenerative disc disease of lumbar spine with lumbar radiculopathy symptoms and lumbar spinal stenosis with neurogenic claudication symptoms Post-op Diagnosis:: Same Procedure performed:: Minimally invasive lumbar decompression bilateral L3-L4 and L4-L5 Surgeon:: Octavio Lopez MD DIE DESIGNER APPRENTICE:: Other Anesthesia: MAC Estimated blood loss (mL): 5 Clinical Note:: This patient is a pleasant 51-year-old white male who we are treating for low back pain with lumbar radiculopathy symptoms and lumbar spinal stenosis with neurogenic claudication symptoms. He has increasing back pain and leg pain especially while standing and walking. MRI and epidurogram did show significant stenosis at L3-L4 and L4-L5. There is significant ligamentum flavum hypertrophy at both levels bilaterally. He presents for minimally invasive lumbar decomp ression bilateral L3-4 and L4-5 today. Operative findings:: None Operative note:: Informed consent was obtained and the risk and benefits of the procedure was explained to the patient. The patient was taken to the operating room and placed prone on the procedure table. The patient was prepped and draped in sterile fashion. C-arm fluoroscopy was used to view the lumbar spine. The skin and subcutaneous tissues were anesthetized using lidocaine. A epidural needle was inserted and advanced into the L3-L4 interspace. After confirmation of needle placement in the epidural space, dye was injected in a contralateral oblique view. There was an epidurogram seen at L3-L4 and L4-L5. Significant stenosis was seen at L3-L4 and L4-L5. The skin and subcutaneous tissues again were anesthetized using lidocaine. An incision was made and a access trocar was inserted and advanced to contact at the superior aspect of the L4 lamina on the left side. And a contralateral oblique view the side was viewed. Using a bone rongeur and tissue sculptor we debulked bone from the L3-L4 and L4-L5 interspace on the left side. We then used the tissue sculptor to debulk ligament at the L3-L4 and L4-L5 interspace on the left side. We then moved over to the right side and debulked bone and ligament from L3-L4 and L4-L5 on the right side. There is opening of the stenosis at L3-L4 and L4-L5 bilaterally. The access trocar was removed. A total of 3 mL's of dye was used. There is good spread of dye above and below this level as well. We injected 80 mg Depo-Medrol through the epidural needle. The epidural needle was removed and dressings were placed. This encounter for exam is for normal comparison and control in a clinical research program Patient was taken to recovery in stable condition. Patient was discharged home neurologically intact and with good relief of pain symptoms. Plan and disposition: We will follow-up with this patient in 2 weeks. Will reevaluate symptoms at that time. Condition: stable Disposition: PACU Complications:: None
[2022-01-27 10:29] VITALS: BP 152/79; PULSE 82; RESP 18; O2SAT 97
[2022-01-27 10:59] VITALS: BP 152/79; PULSE 86; RESP 16; O2SAT 99
[2022-01-27 11:30] VITALS: BP 152/78; PULSE 84; RESP 16; O2SAT 99
[2022-01-27 11:47] LABS: POC Glucose,Bedside 134 (70-110)
== END 2022-01-27 11:30 | disposition home or self-care (01) ==
PROVIDERS: PCP Emergency Medicine; Visit Provider Anesthesiology
DX: M51.16 Intervertebral disc disorders with radiculopathy, lumbar region (principal); M48.062 Spinal stenosis, lumbar region with neurogenic claudication; Z72.0 Tobacco use; Z79.899 Other long term (current) drug therapy; Z00.6 Encounter for examination for normal comparison and control in clinical research program
CPT/HCPCS: 0275T; 82962; 96374; C1889; J1040; J2405

== ENCOUNTER → 2022-02-09 10:27 | Outpatient (POV) | payer MEDICARE, MEDICAID, SELFPAY ==
--- NOTE | 2022-02-09 10:53 | EXP.PAIN.SOA ---
[facility] Pain Management SOAP Note Subjective:: Patient is a pleasant 51-year-old who presents today for follow-up of GA LD at L3-L4 and L4-5 on 01/27/2022. We are currently treating the patient for degenerative disc disease of lumbar spine with lumbar radiculopathy symptoms, lumbar spinal stenosis with neurogenic claudication symptoms. Today he rates his pain a 2 out of 10. Patient states he has had significant improvement following this procedure. He states he has had at least 70 to 80% relief of his symptoms. He states he has been able to increase his activity including range of motion exercises with minimal pain. Patient does work as a cook at [employer]. Patient is currently prescribed gabapentin 300 mg twice a day and clonazepam 0.5 mg twice a day by Dr. Garrison's office. Patient states he did previously have some falls and thinks it may be related to his medications. He states he has decreased these and has been doing much better and not had any falls. Patient states these medications do help. His Otis is [id number]. Its been reviewed and appropriate. Review of Systems: General: No recent weight changes, no fever, no sleep disturbances Respiratory: No cough, no shortness of air, no recurring pulmonary infections Cardiovascular/peripheral vascular: No chest pain, no palpitations, no edema, no shortness of breath Gastrointestinal: No new onset incontinence, normal bowel movements reported Genitourinary: No new onset incontinence Musculoskeletal: Low back pain Psychiatric: [Normal mood/affect] Neurological: [Denies weakness in extremities], [denies balance issues] Objective:: Physical Exam: General: Alert and oriented x3, no acute distress, pleasant and cooperative Lungs: Respirations even and unlabored, symmetrical chest expansion Eyes: PERRL Musculoskeletal: Flexion and extension of lumbar [spine] somewhat guarded secondary to pain, [antalgic gait noted] Neurological: Speech clear, no gross sensory deficit Assessment:: Degenerative disc disease of lumbar spine with lumbar radiculopathy symptoms, lumbar spinal stenosis with neurogenic claudication symptoms Plan:: Patient has had significant improvement of his low back pain following his lumbar decompression. At this time the patient is doing well. We will follow-up with the patient in 1 month. Patient will return to clinic in 1 month for reevaluation of symptoms and follow-up. Patient has been instructed to contact the clinic with any concerns before the next appointment. Dr. Lopez has reviewed this note and agrees with this plan of care. This note was dictated using voice recognition software and make contain errors or omissions. PFSH PFSH Medical History History of back pain History of syncope Surgical History History of throat surgery Family History Other FHx: mental illness Family history of cancer Family history of hyperlipidemia Family history of hypertension Family history of myocardial infarction Social History Smoking Status: Current every day smoker tobacco type: cigarettes packs per day: 1 pack-years: 20 alcohol intake: former substance use type: former substance user and marijuana current occupational status: disabled Travel in the last 8 weeks: None household members: other housing: assisted living facility marital status: single service: No halfway: No special guerda needs: No agree to transfusion: No do you feel safe at home: Yes victim of physical abuse: No victim of emotional abuse: No victim of sexual abuse: No would you like helpful sources: No
[2022-02-09 11:53] VITALS: BP 140/86; PULSE 105; RESP 18; TEMP 37.1; O2SAT 97; BMI 33.0
== END ==
PROVIDERS: PCP Emergency Medicine; Visit Provider Nurse Practitioner Family
DX: M51.16 Intervertebral disc disorders with radiculopathy, lumbar region (principal); M48.062 Spinal stenosis, lumbar region with neurogenic claudication; Z72.0 Tobacco use
CPT/HCPCS: 99212; G0463

== ENCOUNTER → 2022-03-15 09:34 | Outpatient (POV) | payer MEDICARE, MEDICAID, SELFPAY ==
--- NOTE | 2022-03-15 09:53 | EXP.PAIN.SOA ---
[facility] Pain Management SOAP Note Subjective:: Patient is a pleasant 51-year-old male who presents today for follow-up. We are currently treating the patient for degenerative disc disease of lumbar spine with lumbar radiculopathy symptoms. Today he rates his pain a 10 out of 10. Patient states his pain is all in his right low back into his right hip and down his leg. He states he does also have this pain occasionally along the left side but currently the right is what bothers him. Patient states this has been going on for approximately 1 month and describes it as a sharp, throbbing sensation that is worse with increased activity. Patient states this does affect his ability to move around and do activities of daily living and that it has affected his gait. Patient previously had a MA LD at L3-L4 and L4-L5 on 01/27/2022. Patient states he continues to do well with this and denies any new symptoms in his back. Patient is currently prescribed gabapentin 300 mg twice a day and clonazepam twice a day by Dr. Garrison's office. Patient denies any problems with this medication and and states it does help. Patient denies any kidney or cardiac issues. His Otis is [id number]. It has been reviewed and appropriate. Review of Systems: General: No recent weight changes, no fever, no sleep disturbances Respiratory: No cough, no shortness of air, no recurring pulmonary infections Cardiovascular/peripheral vascular: No chest pain, no palpitations, no edema, no shortness of breath Gastrointestinal: No new onset incontinence, normal bowel movements reported Genitourinary: No new onset incontinence Musculoskeletal: Low back pain right side, right hip pain right leg pain Psychiatric: [Normal mood/affect] Neurological: [Denies weakness in extremities], [denies balance issues] Objective:: Physical Exam: General: Alert and oriented x3, no acute distress, pleasant and cooperative Lungs: Respirations even and unlabored, symmetrical chest expansion Eyes: PERRL Musculoskeletal: Flexion and extension of lumbar [spine] somewhat guarded secondary to pain, [antalgic gait noted] point tenderness along right SI and right greater trochanteric bursa and positive right Trev's, Blas's, Gaenslen's, compression and distraction exam Neurological: Speech clear, no gross sensory deficit Assessment:: Degenerative disc disease of lumbar spine with lumbar radiculopathy symptoms, sacroiliitis, greater trochanteric bursitis Plan:: Patient is experiencing significant pain in his low back on the right side that radiates into his right hip and down his right leg. Patient did have limited range of motion of his lumbar spine as well as positive point tenderness along his right SI and right greater trochanteric bursa. Patient had a positive right Trev's, Blas's, Gaenslen's, compression and distraction exam during today's visit. I have discussed with the patient that he may benefit from a right SI and right bursa injection. Risk and benefits were discussed with the patient. He would like to proceed forward with this plan of care. I have also discussed with the patient that I will order him a 14-day supply of diclofenac 75 mg twice daily. I have counseled the patient to take no additional NSAID products while taking this medication and to take this medicine with food to help minimize GI upset. We will schedule the patient for a right SI and a right bursa injection. Patient has been instructed to contact the clinic with any concerns before the next appointment. Dr. Lopez has reviewed this note and agrees with this plan of care. This note was dictated using voice recognition software and make contain errors or omissions. [facility] Medical History History of back pain History of syncope Surgical History History of throat surgery Family History Other F
[2022-03-15 10:12] VITALS: BP 176/82; PULSE 84; RESP 18; O2SAT 98; BMI 31.7
== END | disposition home or self-care (01) ==
PROVIDERS: PCP Emergency Medicine; Visit Provider Nurse Practitioner Family
DX: M51.16 Intervertebral disc disorders with radiculopathy, lumbar region (principal); M46.1 Sacroiliitis, not elsewhere classified; M70.60 Trochanteric bursitis, unspecified hip
CPT/HCPCS: 99212; G0463

== ENCOUNTER 2022-03-21 09:14 | Day surgery (SDC) | payer MEDICARE, MEDICAID, SELFPAY ==
[2022-03-21 09:28] VITALS: BP 149/87; PULSE 79; RESP 18; TEMP 37; O2SAT 98; BMI 30.8
[2022-03-21 09:34] VITALS: BP 175/90; PULSE 85; RESP 18; O2SAT 97
[2022-03-21 09:53] VITALS: BP 147/69; PULSE 83; RESP 20
--- NOTE | 2022-03-21 13:14 | P.PCN_ITS ---
Procedure Date: 03/21/22 Time: 09:30 Anesthesiologist:: Jacob Proctor CRNA Complications:: None Pre-procedure Diagnosis:: Right sacroiliitis. Right trochanteric bursitis Post-procedure Diagnosis:: Same. Indications for Procedure:: Patient is a very pleasant 51-year-old male that comes our clinic today for right trochanteric bursitis injection as well as right sacroiliitis injection. Patient describes the right sacroiliac joint pain as constant, dull, aching. Patient describes a right lateral hip pain as sharp and stabbing. He has extreme point tenderness over each area. He rates his pain 8/10. Procedure Details:: Procedure: Right trochanteric bursa injection under fluoroscopy We then moved to the right trochanteric bursa.~ C-arm fluoroscopy was used to view the left greater trochanter.~ The skin and subcutaneous tissues overlying the right greater trochanter were anesthetized using lidocaine, 1.5% and a 25- gauge needle.~ After this, a 22-gauge spinal needle was inserted and advanced until it contacted the right greater trochanter.~ Dye was injected and good spread was seen throughout the right trochanteric bursa. After this, approximately 5 mL of bupivacaine, 0.25% and Depo-Medrol, 40 mg was incrementally injected into the right right trochanteric bursa.~ The patient tolerated the procedure well with no complications. Procedure: Right sacroliliac joint injection under fluoroscopy Informed consent was obtained and the risk and benefits of the procedure were explained to the patient.~ The patient was taken to the procedure room and noninvasive monitors were placed including noninvasive blood pressure cuff and pulse oximeter.~ The patient was placed prone on the procedure table.~ The~ right hip was cleansed using Betadine as a cleansing solution.~ C-arm fluorosocpy was used to view the right SI joint.~ The skin and subcutaneous tissues were anesthetized using Lidocaine 1.5% and a 25-gauge needle.~ After this, a 22-gauge spinal needle was inserted under fluoroscopic guidance into the inferior aspect of the right SI joint.~ Omnipaque dye was injected and a good spread was seen throughout the joint.~ After this, approximately 5 mL of bupivacaine 0.25% and Depo-Medrol 40 mg was incrementally injected into the sacroiliac joint.~ The patient tolerated the procedure well with no complications.~ The patient was observed in the Pain Clinic, then discharged home neurologically intact.~ Plan and Disposition:: Patient was discharged without incident.
== END 2022-03-21 09:54 | disposition home or self-care (01) ==
LOC: SC.PAINP 09:15
PROVIDERS: PCP Emergency Medicine; Visit Provider Nurse Anesthetist, Certified Registered
DX: M46.1 Sacroiliitis, not elsewhere classified (principal); M70.61 Trochanteric bursitis, right hip
CPT/HCPCS: 20610; 27096; 77002; G0260; J1030

== ENCOUNTER 2024-05-01 17:18 | Emergency (ER) | payer MEDICARE, MEDICAID, SELFPAY ==
[2024-05-01 17:18] VITALS: BP 210/94; PULSE 80; RESP 24; TEMP 36.9; O2SAT 97; BMI 40.1
--- NOTE | 2024-05-01 17:25 | ECG_ITS ---
APPROVED REPORT Exam: Resting ECG HR:75 bpm ECG Measurements Heart Rate 75 AXES IL 132 P 64 QRSd 86 QRS 92 QT 358 T 47 QTc 387 Conclusion SINUS RHYTHM BORDERLINE RIGHT AXIS DEVIATION [QRS AXIS > 90] BORDERLINE ECG Electronically signed by : BILLY KUMARI, 05/02/2024 00:52:03
--- NOTE | 2024-05-01 17:26 | XR_ITS ---
PROCEDURE INFORMATION: Exam: XR Chest Exam date and time: 05/01/2024 5:37 PM Age: 53 years old Clinical indication: Shortness of breath; Additional info: SOA, dypnea TECHNIQUE: Imaging protocol: Radiologic exam of the chest. Views: 1 view. COMPARISON: CR XR CHEST 2V 01/23/2022 10:32 PM FINDINGS: Lungs: Unremarkable. No consolidation. Pleural spaces: Unremarkable. No pleural effusion. No pneumothorax. Heart/Mediastinum: Unremarkable. No cardiomegaly. Bones/joints: Unremarkable. IMPRESSION: No acute findings.
[2024-05-01 17:30] VITALS: BP 215/114; PULSE 65; RESP 26; O2SAT 98
[2024-05-01 17:31] LABS: MANUAL DIFFERENTIAL MANUAL DIFFERENTIAL (MANUAL DIFF)
[2024-05-01 17:37] LABS: Basophils # 0.1 K/mm3 (0-0.2); Basophils % 0.5 % (0.1-2.0); Eosinophils # 0.2 K/mm3 (0.0-0.4); Eosinophils % 1.2 % (0.1-12.0); Hematocrit 38.6 % (42.0-52.0); Hemoglobin 12.5 g/dL (14.1-18.0); Lymphocytes # 2.5 K/mm3 (0.7-4.5); Lymphocytes % 18.5 % (10-50); Mean Corpuscular HGB Conc 32.4 g/dL (31.8-35.4); Mean Corpuscular Hemoglobin 28.5 pg (27.0-31.2); Mean Corpuscular Volume 87.9 fl (80-94); Mean Platelet Volume 9.2 fl (7.4-10.4); Monocytes # 1.4 K/mm3 (0.1-1.0); Monocytes % 10.5 % (1.7-9.3); Neutrophils # 9.1 K/mm3 (1.8-7.8); Neutrophils % 68.5 % (37.0-80.0); Platelet Count 303 K/mm3 (142-424); Red Blood Count 4.39 M/mm3 (4.60-6.20); Red Cell Distribution Width 13.8 % (11.5-17.5); White Blood Count 13.3 K/mm3 (4.8-10.8)
[2024-05-01 17:38] LABS: Albumin Level 4.5 g/dl (3.5-5.0); Chloride 92 mmol/L (98-107); Potassium 3.8 mmoL/L (3.5-5.1); Sodium 130 mmol/L (136-145)
[2024-05-01 17:40] LABS: Blood Urea Nitrogen 10 mg/dl (9-20); Creatinine Clearance Estimated 192 mL/min (50-200); Estimated Glomerular Filt Rate 101 ml/min (>60); GFR (African American) 122 ML/MIN (>60)
[2024-05-01 17:41] LABS: Alanine Aminotransferase 39 U/L (12-78); Albumin/Globulin Ratio 1.4 (1.1-1.8); Alkaline Phosphatase 97 U/L (38-126); Anion Gap 9.8 mEq/L (5-15); Aspartate Amino Transferase 61 U/L (17-59); Bilirubin,Total 0.3 mg/dl (0.2-1.3); Calcium 9.7 mg/dl (8.4-10.2); Carbon Dioxide 32 mmol/L (22.0-30.0); Globulin 3.2 g/dL (1.3-3.2); Glucose 110 mg/dl (74-100); Total Protein,Serum 7.7 g/dl (6.3-8.2)
[2024-05-01 17:51] VITALS: BP 198/116; RESP 26
[2024-05-01 17:51] LABS: NT Pro Brain Natriuretic Pep. 176 pg/mL (0-125)
[2024-05-01 17:52] LABS: Lactate Venous 1.1 mmol/L (0.4-2.0); VBG Base Excess 3.9 mmol/L (-2.4-2.3); VBG Oxygen Saturation 84.4 % (50-70); VBG PCO2 49.5 mmol/L (35-51); VBG PH 7.39 mmol/L (7.31-7.41); VBG PO2 48.7 mmol/L (28-40); VBG Total CO2 30.5 mmol/L (23-27)
[2024-05-01 17:57] LABS: Troponin I < 0.01 ng/ml (0.00-0.034)
[2024-05-01 18:00] VITALS: BP 194/114; PULSE 74; RESP 24; O2SAT 97
--- NOTE | 2024-05-01 18:05 | CT_ITS ---
PROCEDURE INFORMATION: Exam: CT Abdomen And Pelvis With Contrast Exam date and time: 05/01/2024 6:26 PM Age: 53 years old Clinical indication: Abdominal pain; Additional info: R sided abdominal pain, becky rlq TECHNIQUE: Imaging protocol: Computed tomography of the abdomen and pelvis with contrast. 3D rendering (Not supervised by radiologist): MIP and/or 3D reconstructed images were created by the technologist. Radiation optimization: All CT scans at this facility use at least one of these dose optimization techniques: automated exposure control; mA and/or kV adjustment per patient size (includes targeted exams where dose is matched to clinical indication); or iterative reconstruction. Contrast material: ISOVUE; Contrast volume: 70 ml; Contrast route: IV; COMPARISON: CR XR PELVIS 1-2V 01/21/2022 4:39 PM FINDINGS: Tubes, catheters and devices: None noted. Lungs: Lung bases appear clear. Heart: No significant coronary calcifications. No cardiomegaly. No significant pericardial effusion. Liver: Normal. No mass. Gallbladder and biliary ducts: Normal. No calcified stones. No ductal dilation. Pancreas: Normal. No ductal dilation. Spleen: Normal. No splenomegaly. Adrenal glands: Normal. No mass. Kidneys and ureters: Atrophic left kidney. No hydronephrosis. Stomach and bowel: Unremarkable. No obstruction. No mucosal thickening. Appendix: Retrocecal appendix is well visualized. No evidence of appendicitis. Intraperitoneal space: Unremarkable. No free air. No significant fluid collection. Retroperitoneal space: No significant retroperitoneal inflammatory changes are noted. Vasculature: Unremarkable. No abdominal aortic aneurysm. Lymph nodes: Unremarkable. No enlarged lymph nodes. Urinary bladder: Unremarkable as visualized. Reproductive: Unremarkable as visualized. Bones/joints: Vacuum disc L2-L3. No acute fracture. Soft tissues: Unremarkable. IMPRESSION: No acute findings.
--- NOTE | 2024-05-01 18:05 | CT_ITS ---
PROCEDURE INFORMATION: Exam: CTA Chest With Contrast Exam date and time: 05/01/2024 6:26 PM Age: 53 years old Clinical indication: Shortness of breath; Additional info: SOA TECHNIQUE: Imaging protocol: Computed tomographic angiography of the chest with contrast. Exam focused on the arteries. 3D rendering (Not supervised by radiologist): MIP and/or 3D reconstructed images were created by the technologist. Radiation optimization: All CT scans at this facility use at least one of these dose optimization techniques: automated exposure control; mA and/or kV adjustment per patient size (includes targeted exams where dose is matched to clinical indication); or iterative reconstruction. Contrast material: ISOVUE; Contrast volume: 70 ml; Contrast route: INTRAVENOUS (IV); COMPARISON: CT ANGIO CHEST PE PROTOCOL 05/01/2024 6:26 PM FINDINGS: Pulmonary arteries: Normal. No pulmonary emboli. Aorta: Unremarkable. No aortic aneurysm. No aortic dissection. Lungs: Unremarkable. No consolidation. No masses. Pleural spaces: Unremarkable. No pneumothorax. No pleural effusion. Heart: Unremarkable. No cardiomegaly. No pericardial effusion. Lymph nodes: Unremarkable. No enlarged lymph nodes. Adrenal glands: 3.4 cm right adrenal adenoma. Bones/joints: Unremarkable. No acute fracture. Soft tissues: Unremarkable. IMPRESSION: No CTA evidence of pulmonary embolus.
--- NOTE | 2024-05-01 18:09 | ED_ITS ---
Discharge Plan Disposition Patient Disposition: Xfer Other Condition: Good Prescriptions Prescriptions: New lisinopril 20 mg tablet 20 mg PO DAILY Qty: 30 0RF hydrochlorothiazide 25 mg tablet 25 mg PO DAILY Qty: 30 0RF prednisone 20 mg tablet 40 mg PO DAILY 4 Days Qty: 8 0RF doxycycline hyclate 100 mg tablet 100 mg PO BID 10 Days Qty: 20 0RF albuterol sulfate 90 mcg/actuation aerosol powdr breath activated 2 inh inhalation Q4H PRN (Reason: shortness of breath or wheezing) Qty: 1 0RF No Action acetaminophen [Tylenol] 325 mg capsule 325 mg PO Q6H PRN (Reason: pain) ibuprofen 600 mg tablet 600 mg PO Q6H loperamide 2 mg capsule 2 mg PO Q3H PRN (Reason: Diarrhea) ondansetron HCl [Zofran] 4 mg tablet 4 mg PO QID PRN (Reason: Nausea) promethazine 25 mg tablet 25 mg PO Q6H PRN (Reason: Nausea) guaifenesin [Robafen] 100 mg/5 mL liquid 200 mg PO Q6H PRN (Reason: Cough) benztropine 2 mg tablet 2 mg PO TID perphenazine 4 mg tablet 4 mg PO TID prazosin 2 mg capsule 4 mg PO QHS quetiapine [Seroquel] 400 mg tablet 400 mg PO BID risperidone 4 mg tablet 4 mg PO BID sertraline 100 mg tablet 200 mg PO DAILY trazodone 150 mg tablet 200 mg PO QHS PRN (Reason: .) clonazepam 0.5 mg tablet 0.25 mg PO BID 30 Days Qty: 30 2RF gabapentin 300 mg capsule 300 mg PO BID Qty: 60 4RF acetaminophen-codeine 300-30 mg tablet 1 tab PO Q12H PRN (Reason: pain) Qty: 60 0RF diclofenac sodium [diclofenac sodium] 75 mg tablet,delayed release (DR/EC) 75 mg PO BID topiramate 25 MG tablet 25 mg PO BID oxcarbazepine 600 MG tablet 600 mg PO TID Rx Instructions: with meals tamsulosin 0.4 mg Capsule 0.4 mg PO DAILY Multi Vitamin 9 mg iron/15 mL Liquid 1 ml PO DAILY Referrals Follow up/Referrals: Provider,Referral, MD [Primary Care Provider] - See instructions Activity Restrictions/Add. Instructions Additional Instructions/Restrictions: You were evaluated in the emergency department today. You were found to have a COPD exacerbation, for which we prescribed you inhaler, steroids, and antibiotic. You also have high blood pressure for which I put you on 2 medications. Please follow-up very closely for repeat blood pressure as an outpatient. Return to the emergency department for new or worsening symptoms. Clinical Impressions Clinical Impression: Abdominal muscle strain, High blood pressure, Acute exacerbation of chronic obstructive pulmonary disease Instructions Patient Instructions: DI for Chronic Obstructive Pulmonary Disease, DI for High Blood Pressure, DI for Shortness of Breath Print Language Print Language: Sinhala Discharge ED Provider: Madhavi Peres General Adult HPI General Chief complaint: Shortness of Breath/Dyspnea Stated complaint: SOA Time Seen by Provider: 05/01/24 17:18 Mode of Arrival: EMS Source of Information: Patient, EMS and Medical Record Limitations: No Limitations Description of Symptoms (Recalled from ER Triage Doc. by RN): Pt c/o SOA, dypnea, cough, and RLQ abd pain d/t coughing spells today. Pt states he has pulled a muscle there before from coughing . States he was supposed to be on new BP and Ihlaers meds but they have not been delivered yet. EMS states sat was 85% on room air. They placed pt on 2LPM NC, gave SoluMedrol 125mg IVP, and 1x duoneb. Pt feels his breathing is improved since medications. History of Present Illness HPI narrative: This patient is a 53-year-old male with a history of COPD not on home oxygen, hypertension, degenerative disc disease, spinal stenosis presenting from [facility] with concern for cough, shortness of breath, and right lower quadrant abdominal pain related to the cough. Patient states that he pulled a muscle tear about a month ago from coughing, but the pain went away. Today, while he was coughing, he felt a pop in his right lower quadrant and has had severe pain since. He also notes new onset constipation, but he is still passing gas okay. He notes cough and shortness of breath that been going on since he started smoking. No fevers, chest pain, or other concerns noted. EMS noted that the patient was hypoxic on room air at 85% and was placed on 2 L nasal cannula. They gave a DuoNeb and methylprednisolone with some improvement prior to arrival. Related Data Home Medications ?Medication ?Instructions ?Recorded ?Confirmed acetaminophen 325 mg capsule 325 mg PO Q6H PRN pain 09/13/18 03/21/22 (Tylenol) benztropine 2 mg tablet 2 mg PO TID . 09/13/18 03/21/22 guaifenesin 100 mg/5 mL oral 200 mg PO Q6H PRN Cough 09/13/18 03/21/22 liquid (Robafen) ibuprofen 600 mg tablet 600 mg PO Q6H Pain 09/13/18 03/21/22 loperamide 2 mg capsule 2 mg PO Q3H PRN Diarrhea 09/13/18 03/21/22 ondansetron HCl 4 mg tablet 4 mg PO QID PRN Nausea 09/13/18 03/21/22 (Zofran) perphenazine 4 mg tablet 4 mg PO TID . 09/13/18 03/21/22 prazosin 2 mg capsule 4 mg PO QHS . 09/13/18 03/21/22 promethazine 25 mg tablet 25 mg PO Q6H PRN Nausea 09/13/18 03/21/22 quetiapine 400 mg tablet (Seroquel) 400 mg PO BID . 09/13/18 03/21/22 risperidone 4 mg tablet 4 mg PO BID . 09/13/18 03/21/22 sertraline 100 mg tablet 200 mg PO DAILY Depression 09/13/18 03/21/22 trazodone 150 mg tablet 200 mg PO QHS PRN . 09/13/18 03/21/22 oxcarbazepine 600 mg tablet 600 mg PO TID . 09/26/21 03/21/22 topiramate 25 mg tablet 25 mg PO BID sleep 09/26/21 03/21/22 multivitamin with minerals-iron 1 ml PO DAILY Supplement 01/27/22 03/21/22 fumarate 9 mg iron/15 mL oral liquid (Multi Vitamin) tamsulosin 0.4 mg capsule 0.4 mg PO DAILY prostate 01/27/22 03/21/22 diclofenac sodium 75 mg 75 mg PO BID Pain 03/21/22 03/21/22 tablet,delayed release Previous Rx's ?Medication ?Instructions ?Recorded clonazepam 0.5 mg tablet 0.25 mg (1/2 x 0.5 mg) PO BID . 30 05/29/22 days #30 tabs gabapentin 300 mg capsule 300 mg PO BID NEUROPATHY #60 caps 11/27/22 acetaminophen 300 mg-codeine 30 mg 1 tab PO Q12H PRN pain #60 tabs 04/02/23 tablet albuterol sulfate 90 mcg/actuation 2 inh inhalation Q4H PRN shortness 05/01/24 breath activated powder inhaler of breath or wheezing #1 ea doxycycline hyclate 100 mg tablet 100 mg PO BID 10 days #20 tabs 05/01/24 hydrochlorothiazide 25 mg tablet 25 mg PO DAILY #30 tabs 05/01/24 lisinopril 20 mg tablet 20 mg PO DAILY #30 tabs 05/01/24 prednisone 20 mg tablet 40 mg (2 x 20 mg) PO DAILY 4 days 05/01/24 #8 tabs Allergies Allergy/AdvReac Type Severity Reaction Status Date / Time haloperidol Allergy Unknown Verified 03/21/22 09:28 [facility] Disclaimer: The information contained in this section may have been updated after the patient was seen, as this information can be updated by other users. Medical History History of syncope History of back pain Surgical History History of throat surgery Family History Other FHx: mental illness Family history of cancer Family history of hyperlipidemia Family history of hypertension Family history of myocardial infarction Social History Smoking Status: Current every day smoker tobacco type: cigarettes packs per day: 1 alcohol intake: former substance use type: former substance user and marijuana current occupational status: disabled Travel in the last 8 weeks: None household members: other housing: assisted living facility marital status: single service: No fdc: No special guerda needs: No agree to transfusion: No do you feel safe at home: Yes victim of physical abuse: No victim of emotional abuse: No victim of sexual abuse: No would you like helpful sources: No Have you lived/traveled outside [place] in past 30 days?: No Contact w/someone who lives/traveled outside [place] past 30 days?: No Exposure to someone with infectious disease in past 14 days?: No Do you have a fever (greater than 100.4 F or 38 C)?: No Have you tested positive for COVID-19: No Exposed to someone with COVID-19 in past 14 days?: No Do you have a sore throat?: Yes Do you have a cough?: Yes Do you have any weakness?: Yes Do you have any diarrhea?: No Are you experiencing any unusual bleeding?: No Do you have any muscle aches/pain?: No Do you have any abdominal pain?: No Are you experiencing loss of taste or smell?: No Other Medical History Have you received the Flu Vaccine for this season: No Have you received the Pneumonia Vaccine: No ROS Obtained: Yes All systems reviewed & no additional complaints except as documented Physical Exam General General appearance: alert, in no apparent distress and obese Head Head exam: atraumatic and normocephalic Eye Eye exam: Present normal appearance, PERRL and EOMI ENT ENT exam: Present normal exam, normal oropharynx, mucous membranes moist and normal external ear exam Neck Neck exam: Present normal inspection, full ROM and trachea midline; Absent tenderness Chest Chest inspection: Present normal inspection and symmetric chest wall rise; Absent tenderness Respiratory Respiratory exam: Present wheezes, accessory muscle use, prolonged expiratory phase and other (Mild increased work of breathing with accessory muscle use and prolonged expiratory phase. Inspiratory and expiratory wheezing noted.); Absent respiratory distress or stridor Cardiovascular Cardiovascular exam: Present regular rate and normal rhythm Abdominal Exam Abdominal exam: Present tenderness (Right lower abdomen); Absent guarding, rebound or rigidity Comment: Protuberant abdomen which limits exam Extremities Exam Extremities exam: Present normal inspection, full ROM and normal capillary refill; Absent tenderness or edema Back Exam Back exam: Present normal inspection and full ROM; Absent tenderness Neurological Exam Neurological exam: Present alert, oriented X3, CN II-XII intact and normal gait; Absent motor sensory deficit Psychiatric Psychiatric exam: Present normal affect and normal mood Skin Skin exam: Present warm and dry Medical Decision Making Medical Records Medical records reviewed: Yes I reviewed the patient's medical records. Screening: Per USPSTF and CDC recommendations, given the prevalence of disease in our region, it is our hospital?s policy to screen for HIV and viral Hepatitis for all patients aged 18 and over and those with ongoing risk factors. Otis Inquiry Pt receiving controlled substance: No Vital Signs: 05/01/24 17:18 05/01/24 17:30 05/01/24 17:51 Temperature 98.4 F Temperature Source Oral Pulse Rate 65 Pulse Rate [Right] 80 Respiratory Rate 24 26 H 26 H Blood Pressure 215/114 H 198/116 H Blood Pressure [Right Arm] 210/94 H Blood Pressure Mean [Right Arm] 132 Blood Pressure Source [Right Arm] Automatic Cuff 02 Sat by Pulse Oximetry 97 98 Oxygen Delivery Method Nasal Cannula Room Air Room Air Oxygen Flow Rate (LPM) 2 05/01/24 18:00 05/01/24 19:15 05/01/24 20:59 Temperature 97.9 F Temperature Source Oral Pulse Rate 74 82 82 Pulse Rate [Right] Respiratory Rate 24 23 18 Blood Pressure 194/114 H 196/107 H 145/110 H Blood Pressure [Right Arm] Blood Pressure Mean [Right Arm] Blood Pressure Source [Right Arm] 02 Sat by Pulse Oximetry 97 94 L Oxygen Delivery Method Room Air Room Air Oxygen Flow Rate (LPM) Lab Data Lab results reviewed: Yes I reviewed the patient's lab results. Lab Results 05/01/24 16:58: WBC 13.3 H, RBC 4.39 L, Hgb 12.5 L, Hct 38.6 L, MCV 87.9, MCH 28.5, MCHC 32.4, RDW 13.8, Plt Count 303, MPV 9.2, Neut % (Auto) 68.5, Lymph % (Auto) 18.5, Clarke % (Auto) 10.5 H, Eos % (Auto) 1.2, Baso % (Auto) 0.5, Neut # (Auto) 9.1 H, Lymph # (Auto) 2.5, Clarke # (Auto) 1.4 H, Eos # (Auto) 0.2, Baso # (Auto) 0.1, Total Counted 100, Neutrophils % (Manual) 65, Lymphocytes % (Manual) 22, Monocytes % (Manual) 13 H, Platelet Estimate Normal, RBC Morphology Normal, Sodium 130 L, Potassium 3.8, Chloride 92 L, Carbon Dioxide 32 H, Anion Gap 9.8, BUN 10, Creatinine 0.80, Estimated Creat Clear 192, Estimated GFR 101, Est GFR ( Amer) 122, Glucose 110 H, Calcium 9.7, Total Bilirubin 0.3, AST 61 H, ALT 39, Alkaline Phosphatase 97, Troponin I < 0.01, NT-Pro-B Natriuret Pep 176 H , Total Protein 7.7, Albumin 4.5, Globulin 3.2, Albumin/Globulin Ratio 1.4, HCV Ab MARK w/Rflx PCR Qn Negative, HIV Ag/Ab Combo Qual Negative 05/01/24 17:26: VBG pH 7.39, VBG pCO2 49.5, VBG pO2 48.7 H, VBG HCO3 29.0, VBG Total CO2 30.5 H, VBG O2 Saturation 84.4 H, VBG Base Excess 3.9 H, VBG Lactic Acid 1.1 05/01/24 20:00: Troponin I < 0.01 05/01/24 16:58 05/01/24 16:58 Orders (Tests/Meds): ED MEDICATIONS Discontinued Medications Generic Name Dose Route Start Last Admin Trade Name Konstantinq PRN Reason Stop Dose Admin Albuterol/Ipratropium 9 ml 05/01/24 18:06 05/01/24 18:40 Ipratropium/Albuterol 3 Ml Neb IH 05/01/24 18:07 9 ml ONCE ONE Administration Doxycycline Hyclate 100 mg 05/01/24 19:14 05/01/24 19:31 Doxycycline Hycl 100 Mg Tablet PO 05/01/24 19:15 100 mg ONCE ONE Administration Hydrochlorothiazide 25 mg 05/01/24 20:25 Hydrochlorothiazide 25mg Tablet PO 05/01/24 20:26 ONCE ONE Magnesium Sulfate 2 gm in 50 mls @ 50 mls/hr 05/01/24 18:15 05/01/24 18:40 Magnesium Sulfate 2gm/50ml Premix IV 05/01/24 19:14 50 mls/hr ONCE ONE Administration Iopamidol 80 ml 05/01/24 18:27 05/01/24 18:28 Iopamidol-370 (76%);100ml Bottle IV 05/01/24 18:28 80 ml ONCE ONE Administration Lisinopril 20 mg 05/01/24 19:14 05/01/24 19:31 Lisinopril 20mg Tablet PO 05/01/24 19:15 20 mg ONCE ONE Administration Methylprednisolone Sodium Succinate 125 mg 05/01/24 18:06 05/01/24 18:15 Methylprednisolone Sod Succ 125mg Vial IV 05/01/24 18:07 Not Given ONCE ONE Sodium Chloride 50 ml 05/01/24 18:27 05/01/24 18:27 0.9 % Sodium Chloride 50 Ml Vial IV 05/01/24 18:28 50 ml ONCE ONE Administration Sodium Chloride 10 ml 05/01/24 18:27 05/01/24 18:27 Sodium Chloride 0.9% 10ml Syr (Rad Only) IV 05/01/24 18:28 10 ml ONCE ONE Administration ORDERS Category Date Time Status CT abdomen pelvis w con Stat Cat Scan 05/01/24 18:[address] angio chest PE protocol Stat Cat Scan 05/01/24 18:05 Completed XR chest portable Stat Exams 05/01/24 17:26 Completed BNP [NT Pro Brain Natriuretic Pep.] Stat Lab 05/01/24 16:58 Completed Complete Blood Count Man Dif Stat Lab 05/01/24 16:58 Completed Comprehensive Metabolic Panel Stat Lab 05/01/24 16:58 Completed HIV Combo Stat Lab 05/01/24 16:58 Completed Hepatitis C Ab Qual. W/ RFX Stat Lab 05/01/24 16:58 Completed Troponin I Q3H Lab 05/01/24 16:58 Completed Troponin I Q3H Lab 05/01/24 20:00 Completed Venous Blood Gas Stat RT 05/01/24 17:26 Completed ECG Data Tracing #1: I reviewed this ECG and interpreted as documented below: Normal sinus rhythm with a ventricular rate of 75 bpm. Some artifact degrades V4. No acute STEMI. Borderline right axis deviation. Normal intervals. ECG initial impression date: 05/01/24 ECG initial impression time: 17:30 Medical Decision Narrative: In summary, this patient is a 53-year-old male presenting to the Emergency Department for evaluation of cough, shortness of breath, and right lower quadrant abdominal pain is worse with coughing. EMS noted he was hypoxic upon their arrival. He is status post DuoNeb and methylprednisolone with them. Differential diagnoses considered include but are not limited to pneumonia, COPD exacerbation, respiratory failure, PE, musculoskeletal strain, hernia. Ruling out the most morbid conditions drove assessment. It should be noted patient's history includes hypertension which is not at goal therapy. He states that he was supposed to be started on medication for high blood pressure but has not been started. This complicates all aspects of care by increasing patient's risk for morbidity. On exam, the patient is lying in bed in no acute distress. He does have mild increased work of breathing with mild prolonged expiratory phase and this x-ray muscle use, but he is not significantly tachypneic. He arrived on 2 L nasal cannula but I was able to turn it off with the patient maintaining O2 saturation of 93%. He does sound very wheezy, so ordered DuoNebs x 3 and IV magnesium. He was given methylprednisolone prior to arrival. He has high blood pressure with systolics over 200s, and he states he was supposed to be started on something for blood pressure but he has not been. Workup included CBC, CMP, troponin, VBG, CT angiogram PE protocol, CT abdomen pelvis with IV contrast. I independently interpreted CT scans prior to the radiologist read and noted adrenal adenoma. Please see their read for final interpretation. Labs were obtained that demonstrated mild leukocytosis, mild anemia, mild hyponatremia. BNP not significantly elevated, troponins negative x 2. On reassessment, patient had good improvement after administration of interventions above. He continued to have high blood pressure, so I did treat with oral lisinopril and hydrochlorothiazide, which I cinnamon prescriptions for at home. He tolerated this well with good improvement in his blood pressure. I gave him oral doxycycline with concern for COPD exacerbation. Ultimately, he is breathing comfortably with reassuring oxygen saturation on room air, and I feel that he is appropriate for discharge home with new prescriptions for hydrochlorothiazide, lisinopril, as well as prednisone and doxycycline to treat his upper respiratory infection. He was also given prescription for albuterol inhaler. Patient was discharged in stable condition after all questions were answered. Critical Care Critical Care Time Critical Care Time: Yes Attestation: On 05/01/24, the high probability of a clinically significant, sudden or life threatening deterioration of the following system(s) required my full and direct attention, intervention and personal management. The time I documented below is in addition to time spent performing reported procedures but includes the following listed in this critical care notation. Total Time Total Critical Care Time: 40
[2024-05-01] MEDS: SODIUM CHLORIDE 0.9% 10ML SYR (RAD ONLY) 10 ML IV (18:27)
[2024-05-01] MEDS: 0.9 % SODIUM CHLORIDE 50 ML VIAL IV (18:27)
[2024-05-01] MEDS: IOPAMIDOL-370 (76%);100ML BOTTLE 80 ML IV (18:28)
[2024-05-01 18:29] LABS: Lymphocytes % 22 % (10-50); Monocytes % 13 % (2-9); Neutrophils % 65 % (42-76); Platelet Estimate Normal; RBC Morphology Normal; Total Cells Counted 100
[2024-05-01] MEDS: MAGNESIUM SULFATE IN WATER 2 GM/50 ML PIGGYBACK IV (18:40)
[2024-05-01] MEDS: IPRATROPIUM/ALBUTEROL 3 ML NEB 9 ML IH (18:40)
[2024-05-01 18:50] LABS: Hepatitis C Ab Qual. W/ RFX NEGATIVE (Negative)
[2024-05-01 19:15] VITALS: BP 196/107; PULSE 82; RESP 23; O2SAT 94
[2024-05-01 19:20] LABS: HIV Combo NEGATIVE (Negative)
[2024-05-01] MEDS: LISINOPRIL 20MG TABLET 20 MG PO (19:31)
[2024-05-01] MEDS: DOXYCYCLINE HYCL 100 MG TABLET PO (19:31)
[2024-05-01 20:39] LABS: Troponin I < 0.01 ng/ml (0.00-0.034)
--- NOTE | 2024-05-01 20:41 | PC.NURSE ---
Called Edgar at 20:42 to come and get pt. Edgar said ill have someone come get them
[2024-05-01 20:59] VITALS: BP 145/110; PULSE 82; RESP 18; TEMP 36.6; O2SAT 97
== END 2024-05-01 21:02 | disposition other institution (70) ==
PROVIDERS: Emergency Provider Emergency Medicine
DX: J44.1 Chronic obstructive pulmonary disease with (acute) exacerbation (principal); I10 Essential (primary) hypertension; S39.011A Strain of muscle, fascia and tendon of abdomen, initial encounter; R06.02 Shortness of breath; R06.00 Dyspnea, unspecified; R05.9 Cough, unspecified; R10.31 Right lower quadrant pain; K59.00 Constipation, unspecified
CPT/HCPCS: 71045; 71275; 74177; 80053; 82803; 83880; 84484; 85007; 85014; 85018; 85048; 85049; 86803; 87389; 93005; 96365; 99291; J3475; J7620; Q9967